=== PATIENT | female | born 1970 | race Caucasian/White ===

== ENCOUNTER 2021-06-21 12:21 | Inpatient (IN) ==
--- NOTE | 2021-06-21 13:25 | Emergency Department Note ---
Impression & Plan COPD exacerbation, Chronic chest pain, Acute and chronic respiratory failure ED Provider Note Provider: Joe Gordon MD DATE OF SERVICE: 06/21/2021 CHIEF COMPLAINT: Cough, shortness of breath HISTORY OF PRESENT ILLNESS: Patient is a 50-year-old female with a history of PE on Eliquis, CHF, bipolar, and stage IV COPD presenting here today complaint of worsening shortness of breath and cough. Patient states been dealing with this for some time and follows with her outpatient doctor and outpatient agricultural engineering technicians. Her primary doctor is located [facility] [place] your outpatient agricultural engineering technicians is located [facility]. Has been on multiple antibiotics including Augmentin, azithromycin, doxycycline most recently, and last week Levaquin without improvement of her symptoms. Has been on some prednisone increased over the last 2 days to 40 mg. States she is using her home oxygen at 3 L as normal but her oxygen levels been dropping and she is been using her nebulizer with minimal improvement. Patient states she has 1 child of the Covid vaccine at this time. Patient states compliance with her home Eliquis. Reports a little bit of chronic chest discomfort and does have a fentanyl transdermal patch for this. States the pain is beginning to hurt a little worse the tramadol she took earlier is wearing off. REVIEW OF SYSTEMS: A total of 10 review of systems was obtained and negative except as stated above in the HPI. PAST MEDICAL HISTORY: As noted above MEDICATIONS: Reviewed home medications SOCIAL HISTORY: Former longtime smoker, on home oxygen, lives at home PHYSICAL EXAM: GENERAL: alert and oriented sitting in the bed tachypneic appears uncomfortable Head: normocephalic and atraumatic EYES: No injection, discharge or icterus. NECK: Trachea midline. Supple. ENT: Mucous membranes pink and moist LUNGS: Airway patent. No retractions but tachypnea. Intermittently coughing with diffuse expiratory and mild inspiratory wheezing. HEART: Regular tachycardic rate and rhythm. No chest wall tenderness with anterior chest wall transdermal fentanyl patch in place ABDOMEN: Soft and non-tender, without guarding or rebound. SKIN: Acyanotic, warm, dry, without rashes EXTREMITIES: Without swelling, tenderness or deformity NEUROLOGICAL: No focal deficits. No aphasia. No facial droop or slurred speech. EK bpm sinus tachycardia. No PVCs. QTc 430. Some respiratory artifact but no clear ST segment elevation. QTc 430. Nonspecific T wave changes. CONTINUOUS CARDIAC MONITORING: was ordered and showed a heart rate of 120s to 140s bpm in sinus tachycardia Patient's laboratory studies and imaging reviewed. Differential includes Reactive airway disease, pneumonia, pneumothorax, COPD, CHF, infections, cardiac ischemia, pulmonary embolism, musculoskeletal, gastrointestinal, as well as other pathologies. IMPRESSION/MEDICAL DECISION MAKING: Blood work here with mild leukocytosis. Procalcitonin not elevated however lower suspicion for bacterial infection. She has been on multiple antibiotics recently without improvement. Covid negative. Troponin not elevated and no STEMI on EKG. Chronic chest pain and lower suspicion given the chronicity of her symptoms this represents ACS/RI. Given a small amount of additional fentanyl here. Tachycardia is likely related to both respiratory treatments as well as her tachypnea. Given additional Solu-Medrol here. Chest x-ray with emphysematous changes per radiology. Not anemic here today. Patient refuses and states she cannot tolerate a mask such as BiPAP or CPAP and thus transition to high flow nasal cannula to see if improves her work of breathing. Some improvement with this. Again low suspicion for PE given her anticoagulated status. Given her severe COPD and refractory nature with recent outpatient thuy tment unsure how quickly she may improve or can improve but the patient will be admitted by the hospitalist for further evaluation and care here. DIAGNOSIS: COPD exacerbation, acute on chronic respiratory failure DISPOSITION: Hospitalist will evaluate Patient was agreeable with this plan. Critical Care I have personally spent 34 minutes of critical care time in the direct management of this patient. This includes bedside care, interpretation of diagnostic studies, and testing, discussion with consultants, patient, and family members, and other required patient management activities. These 34 minutes is in excess of all separately billable procedures. Past Med/Surg History Medical History (Updated 06/21/21 @ 19:49 by Joe Gordon M.D.) Bipolar 1 disorder Chronic chest pain Chronic congestive heart failure Depression with anxiety History of breast cancer History of gastric ulcer History of pulmonary embolism Severe chronic obstructive pulmonary disease Surgical History (Updated 06/21/21 @ 17:02 by Zi Marks MD) History of adenectomy History of cholecystectomy History of hysterectomy with oophorectomy History of left mastectomy History of left shoulder replacement History of tonsillectomy Social History Smoking Status: Former smoker Tobacco Type: Cigarettes Smoking End Date: 2017; Second Hand Exposure: No; Tobacco Cessation Education Requested by Patient: No Hx Alcohol Use: No Hx Substance Use: No Preferred Language: Canadian Drafter Structural Required: No Beliefs That Will Affect Care: None Current Living Situation: Family Feels Safe at Home: Yes Assistive Devices: Denture - Upper, Denture - Lower, Nebulizer and Oxygen - Co ntinuous Allergies Allergies Allergy/AdvReac Type Severity Reaction Status Date / Time zolmitriptan Allergy Verified 06/21/21 15:03 SUMATRIPTAN SUCCINATE Allergy Mild Y Uncoded 06/21/21 15:03 (Generic Allergy) ANIMALS;DUST-ASTHMA Allergy Unknown Rash Uncoded 06/21/21 15:03 TORADOL;IMITREX-RASH Allergy Unknown Hives Uncoded 06/21/21 15:03 KETOROLAC TROMETHAMINE Allergy Y Uncoded 06/21/21 15:03 (Generic Allergy) Home Meds Home Medications Medication Instructions Recorded Confirmed albuterol sulfate 90 mcg/actuation 1 inh INHALATION Q4H 06/21/21 06/21/21 aerosol inhaler apixaban 5 mg tablet (Eliquis) 5 mg PO BID 06/21/21 06/21/21 azelastine 137 mcg (0.1 %) nasal 137 mcg INTRANASAL BID 06/21/21 06/21/21 spray aerosol budesonide 160 mcg-glycopyr 9 2 inh INHALATION BID 06/21/21 06/21/21 mcg-formot 4.8 mcg/actuation HFA inhaler (Breztri Aerosphere) clonazepam 0.5 mg tablet (Klonopin) 0.5 mg PO TID 06/21/21 06/21/21 duloxetine 20 mg capsule,delayed 40 mg PO BID 06/21/21 06/21/21 release (Cymbalta) fentanyl 12 mcg/hr transdermal 1 patch TOPICAL DAILY 06/21/21 06/21/21 patch furosemide 20 mg tablet (Lasix) 20 mg PO QPM PRN 06/21/21 06/21/21 guaifenesin 600 mg tablet, 600 mg PO Q12H 06/21/21 06/21/21 extended release 12 hr ipratropium 0.5 mg-albuterol 3 mg 3 ml INHALATION QID 06/21/21 06/21/21 (2.5 mg base)/3 mL nebulization soln lamotrigine 200 mg tablet 200 mg PO BID 06/21/21 06/21/21 metoprolol succinate 25 mg 25 mg PO DAILY 06/21/21 06/21/21 tablet,extended release 24 hr montelukast 10 mg tablet 10 mg PO DAILY 06/21/21 06/21/21 ondansetron HCl 4 mg tablet 4 mg PO Q6H PRN 06/21/21 06/21/21 (Zofran) pantoprazole 40 mg tablet,delayed 40 mg PO BID 06/21/21 06/21/21 release potassium chloride 20 mEq oral 20 meq PO DAILY 06/21/21 06/21/21 packet prednisone 20 mg tablet 20 mg PO DAILY 06/21/21 06/21/21 ropinirole 1 mg tablet 1 mg PO HS 06/21/21 06/21/21 sertraline 100 mg tablet 100 mg PO DAILY 06/21/21 06/21/21 sodium chloride 0.65 % nasal spray 1 spray INTRANASAL DAILY PRN 06/21/21 06/21/21 aerosol (Saline Nasal) spironolactone 25 mg tablet 25 mg PO DAILY 06/21/21 06/21/21 tramadol 50 mg tablet 50 mg PO Q8H PRN 06/21/21 06/21/21 Results & Data (ED) Vital Signs Vital Signs - 24 hr 06/21/21 12:34 06/21/21 12:47 06/21/21 12:51 Temperature 36.8 C Temperature Source Skin Pulse Rate 124 H Pulse Rate [Right Finger] 124 H Pulse Rhythm Regular Pulse Rhythm [Right Finger] Pulse Strength Normal Respiratory Rate 36 H 18 Respiratory Effort / Characteristics Spontaneous Accessory Muscle Use Labored Short of Breath Short of Breath Spontaneous Labored Short of Breath Tripoding Respiratory Depth Respiratory Pattern Tachypnea Blood Pressure 136/87 Blood Pressure [Right Arm] 151/91 H Blood Pressure Mean 103 Blood Pressure Mean [Right Arm] 111 Blood Pressure Position [Right Arm] Pulse Oximetry 86 L 98 Oxygen Delivery Method Nasal Cannula Oxymask Oxymask Oxygen Flow Rate 4 5 5 Fraction of Inspired Oxygen Sepsis Recent Fever Within 48 Hours No Sepsis New/Unexplained Change in Mental Status N/A Sepsis Action Taken by Nursing No Action Required Oxygen Flow Rate - Titration 06/21/21 12:57 06/21/21 14:12 06/21/21 14:49 Temperature Temperature Source Pulse Rate 124 H Pulse Rate [Right Finger] 100 H 144 H Pulse Rhythm Pulse Rhythm [Right Finger] Pulse Strength Respiratory Rate 24 24 24 Respiratory Effort / Characteristics Spontaneous Labored Respiratory Depth Respiratory Pattern Blood Pressure Blood Pressure [Right Arm] 106/73 Blood Pressure Mean Blood Pressure Mean [Right Arm] 84 Blood Pressure Position [Right Arm] Pulse Oximetry 98 97 95 Oxygen Delivery Method Oxymask Oxymask Nasal Cannula Oxygen Flow Rate 5 3 3 Fraction of Inspired Oxygen Sepsis Recent Fever Within 48 Hours Sepsis New/Unexplained Change in Mental Status Sepsis Action Taken by Nursing Oxygen Flow Rate - Titration 3 06/21/21 14:50 06/21/21 15:25 06/21/21 16:04 Temperature Temperature Source Pulse Rate Pulse Rate [Right Finger] 130 H 127 H Pulse Rhythm Pulse Rhythm [Right Finger] Regular Pulse Strength Respiratory Rate 22 20 Respiratory Effort / Characteristics Spontaneous SOB on Exertion Respiratory Depth Normal Respiratory Pattern Regular Blood Pressure Blood Pressure [Right Arm] 142/95 H Blood Pressure Mean Blood Pressure Mean [Right Arm] 110 Blood Pressure Position [Right Arm] Lying Pulse Oximetry 95 94 95 Oxygen Delivery Method Nasal Cannula High Flow Nasal Cannula High Flow Nasal Cannula Oxygen Flow Rate 3 30 30 Fraction of Inspired Oxygen 40 Sepsis Recent Fever Within 48 Hours Sepsis New/Unexplained Change in Mental Status Sepsis Action Taken by Nursing Oxygen Flow Rate - Titration Laboratory Data Result diagrams: 06/21/21 13:20 06/21/21 13:20 Lab Results 06/21/21 06/21/21 06/21/21 Range/Units 13:20 13:20 13:20 WBC 14.87 H (4.8-10.8) K/uL RBC 4.29 (4.2-5.4) M/uL Hgb 12.2 (12.0-16.0) g/dL Hct 40.3 (37-47) % MCV 93.9 (80-100) fL MCH 28.4 (25-34) pg MCHC 30.3 L (32-36) g/dL RDW Std Deviation 52.9 H (36.4-46.3) fL RDW Coeff of Negrito 15.4 H (11.5-14.5) % Plt Count 417 H (130-400) K/uL MPV 8.7 (7.4-10.4) fL Immature Gran % (Auto) 0.8 % Neut % (Auto) 91.0 % Lymph % (Auto) 4.1 % [place] % (Auto) 4.0 % Eos % (Auto) 0.0 % Baso % (Auto) 0.1 % Neut # (Auto) 13.53 H (1.4-6.5) K/uL Lymph # (Auto) 0.61 L (1.2-3.4) K/uL [place] # (Auto) 0.59 (0.11-0.59) K/uL Eos # (Auto) 0.00 (0-0.5) K/uL Baso # (Auto) 0.02 (0-0.2) K/uL Immature Gran # (Auto) 0.12 H (0.00-0.02) K/uL Sodium 138 (136-145) mmol/L Potassium 4.1 (3.5-5.1) mmol/L Chloride 101 (98-107) mmol/L Carbon Dioxide 35 H (21-32) mmol/L Anion Gap 2.0 L (3-11) BUN 6 L (7-18) mg/dl Creatinine 0.82 (0.6-1.2) mg/dl Est Cr Clr Drug Dosing 89.3 ml/min Est GFR ( Amer) 96.0 ml/min Est GFR (Non-Af Amer) 82.9 ml/min BUN/Creatinine Ratio 7.6 L (10-20) Glucose 223 H (70-99) mg/dl Calcium 9.5 (8.5-10.1) mg/dl Troponin I < 0.015 (0-0.045) ng/ml Procalcitonin 0.05 (0-0.5) ng/ml COVID-19 Eval Order SARS-CoV-2 (PCR) (Negative) 06/21/21 06/21/21 Range/Units 13:50 13:50 WBC (4.8-10.8) K/uL RBC (4.2-5.4) M/uL Hgb (12.0-16.0) g/dL Hct (37-47) % MCV (80-100) fL MCH (25-34) pg MCHC (32-36) g/dL RDW Std Deviation (36.4-46.3) fL RDW Coeff of Negrito (11.5-14.5) % Plt Count (130-400) K/uL MPV (7.4-10.4) fL Immature Gran % (Auto) % Neut % (Auto) % Lymph % (Auto) % [place] % (Auto) % Eos % (Auto) % Baso % (Auto) % Neut # (Auto) (1.4-6.5) K/uL Lymph # (Auto) (1.2-3.4) K/uL [place] # (Auto) (0.11-0.59) K/uL Eos # (Auto) (0-0.5) K/uL Baso # (Auto) (0-0.2) K/uL Immature Gran # (Auto) (0.00-0.02) K/uL Sodium (136-145) mmol/L Potassium (3.5-5.1) mmol/L Chloride (98-107) mmol/L Carbon Dioxide (21-32) mmol/L Anion Gap (3-11) BUN (7-18) mg/dl Creatinine (0.6-1.2) mg/dl Est Cr Clr Drug Dosing ml/min Est GFR ( Amer) ml/min Est GFR (Non-Af Amer) ml/min BUN/Creatinine Ratio (10-20) Glucose (70-99) mg/dl Calcium (8.5-10.1) mg/dl Troponin I (0-0.045) ng/ml Procalcitonin (0-0.5) ng/ml COVID-19 Eval Order Covid19 at [facility] SARS-CoV-2 (PCR) NEGATIVE (Negative) Administered Medications Albuterol (Albut/Ipratrop 3mg/0.5mg Neb 3 Ml Vial) 3 ml NEB Q4R TONEY Stop: 07/21/21 18:59 Last Admin: 06/21/21 19:19 Dose: 3 ml Documented by: [id number] Budesonide (Budesonide 0.5 Mg/2 Ml Vial (Pulmicort)) 0.5 mg NEB BIDR TONEY Stop: 07/21/21 18:59 Last Admin: 06/21/21 19:19 Dose: 0.5 mg Documented by: [id number] Formoterol Fumarate (Formoterol 20 Mcg/2 Ml Vial) 20 mcg NEB BID TONEY Stop: 07/21/21 20:59 Last Admin: 06/21/21 19:19 Dose: Not Given Documented by: [id number] Discontinued Medications Albuterol (Albut/Ipratrop 3mg/0.5mg Neb 3 Ml Vial) 12 ml NEB ONE ONE Stop: 06/21/21 13:35 Last Admin: 06/21/21 14:11 Dose: 12 ml Documented by: [id number] Fentanyl Citrate (Fentanyl Citrate 100 Mcg/2 Ml Vial) 25 mcg IV NOW STA Stop: 06/21/21 13:36 Last Admin: 06/21/21 15:01 Dose: 25 mcg Documented by: [id number] Methylprednisolone (Methylprednisolone 125 Mg/2 Ml Vial) 125 mg IV NOW STA Stop: 06/21/21 13:35 Last Admin: 06/21/21 13:51 Dose: 125 mg Documented by: [id number] Morphine Sulfate (Morphine Sulfate 2 Mg/Ml Carp) 2 mg IV NOW STA Stop: 06/21/21 17:00 Last Admin: 06/21/21 17:11 Dose: 2 mg Documented by: [id number] Morphine Sulfate (Morphine Sulfate 2 Mg/Ml Carp) Confirm Administered Dose 2 mg .ROUTE .STK-MED ONE Stop: 06/21/21 17:06 Last Admin: 06/21/21 17:11 Dose: Not Given Documented by: [id number] Imaging Data Radiologist's Impression: Chest X-Ray 06/21/21 12:51 XR chest 1V portable CLINICAL HISTORY: Resiratory Distress. COMPARISON STUDY: No previous studies for comparison. TECHNIQUE: 1 view of the chest FINDINGS: Single frontal view of the chest demonstrates the cardiomediastinal silhouette to be within normal limits. The lungs are clear of alveolar opacities. There is no evidence for pleural effusion. There is no evidence for vascular congestion. There is no acute osseous pathology. IMPRESSION: No acute cardiopulmonary disease. ACT 112: Negative or not required by law. Electronically signed by: Marcel Sanchez M.D. 06/21/2021 2:40 PM Discharge Plan Visit Data Chief Complaint: Respiratory Problems Stated Complaint: VERY SOB/STAGE 4 LUNG DISEASE ED Provider: Joe Gordon Discharge Problem: COPD exacerbation, Chronic chest pain, Acute and chronic respiratory failure Patient Disposition: Admitted As Inpatient Discharge Instructions Interventions: ED Discharge Assessment Last Done: 06/21/21 17:28
[2021-06-21 13:29] LABS: Basophils # (auto) 0.02 K/uL (0-0.2); Basophils % (auto) 0.1 %; Hematocrit (blood only) 40.3 % (37-47); Hemoglobin 12.2 g/dL (12.0-16.0); Immature Granulocytes # (auto) 0.12 K/uL (0.00-0.02); Immature Granulocytes % (auto) 0.8 %; Lymphocytes # (auto) 0.61 K/uL (1.2-3.4); Lymphocytes % (auto) 4.1 %; Mean Corpuscular Hemoglobin 28.4 pg (25-34); Mean Corpuscular Hgb Conc 30.3 g/dL (32-36); Mean Corpuscular Volume 93.9 fL (80-100); Mean Platelet Volume 8.7 fL (7.4-10.4); Monocytes # (auto) 0.59 K/uL (0.11-0.59); Neutrophils # (auto) 13.53 K/uL (1.4-6.5); Platelet Count 417 K/uL (130-400); RDW Coefficient of Variation 15.4 % (11.5-14.5); RDW Standard Deviation 52.9 fL (36.4-46.3); Red Blood Count 4.29 M/uL (4.2-5.4); White Blood Count 14.87 K/uL (4.8-10.8)
[2021-06-21] MEDS ORDERED: ALBUT/IPRATROP 3MG/0.5MG NEB 3 ML VIAL NEB ONE (13:34)
[2021-06-21] MEDS ORDERED: methylPREDNISolone 125 MG/2 ML VIAL IV STA (13:34)
[2021-06-21] MEDS ORDERED: fentaNYL citrate 100 MCG/2 ML VIAL IV STA (13:35)
[2021-06-21 13:49] LABS: BUN Creatinine Ratio 7.6 (10-20); Blood Urea Nitrogen 6 mg/dl (7-18); Calcium 9.5 mg/dl (8.5-10.1); Carbon Dioxide 35 mmol/L (21-32); Chloride 101 mmol/L (98-107); Creatinine Clr Calc Pharmacy 89.3 ml/min; Est GFR (Non-African American) 82.9 ml/min; Glucose 223 mg/dl (70-99); Potassium 4.1 mmol/L (3.5-5.1); Sodium 138 mmol/L (136-145)
[2021-06-21 13:54] LABS: Troponin I < 0.015 ng/ml (0-0.045)
--- NOTE | 2021-06-21 14:41 | XRay Report ---
XR chest 1V portable CLINICAL HISTORY: Resiratory Distress. COMPARISON STUDY: No previous studies for comparison. TECHNIQUE: 1 view of the chest FINDINGS: Single frontal view of the chest demonstrates the cardiomediastinal silhouette to be within normal li mits. The lungs are clear of alveolar opacities. There is no evidence for pleural effusion. There is no evidence for vascular congestion. There is no acute osseous pathology. IMPRESSION: No acute cardiopulmonary disease. ACT 112: Negative or not required by law. Electronically signed by: Marcel Sanchez M.D. 06/21/2021 2:40 PM
--- NOTE | 2021-06-21 15:48 | History & Physical Report ---
Date of Service June 21, 2021 Assessment & Plan (1) COPD exacerbation: Plan: Solu-medrol 125mg IV given in ER. Continue 40mg IV TID. Eventual wean back to her chronic steroids of prednisone 20mg PO daily Start Pulmicort and Perforomist nebulizers instead of her home inhaler Continue duonebs Q4H Continue doxycycline 100mg IV BID If not improving consider pulmonology consult (2) Acute on chronic respiratory failure with hypoxia: Plan: Unable to tolerate BiPAP Aim O2 sats > 88% (3) Chronic chest pain: Plan: Continue her usual Fentanyl patch Morphine/oxycodone for breakthrough pain (4) Depression with anxiety: Plan: Continue duloxetine and sertraline (taking both as currently in transition to sertraline) Continue Klonipin 0.5mg TID PRN (5) Bipolar 1 disorder: Plan: Continue lamotrigine 200mg PO BID (6) Chronic congestive heart failure: Plan: No acute exacerbation of this suspected. Appears euvolemic on exam. Unknown if diastolic or systolic per patient recollection Continue spironolactone 25mg PO daily (7) History of pulmonary embolism: Plan: Continue Eliquis (8) Hypertension: Plan: Continue spironolactone (9) Hiatal hernia: Plan: Continue pantoprazole 40mg PO BID Plan: VTE Prophylaxis - Eliquis Diet - clear liquid Disposition - admit to PCU given degree of respiratory failure and severity of COPD Admission and Anticipated Discharge Date Admission Date: June 21, 2021 History of Present Illness Chief Complaint: Shortness of breath Primary Care Provider: Cesar Rivera MD Krys Capellan is a 50 year old female with severe COPD and chronic hypoxic respiratory failure who presents to the ER with shortness of breath progressively getting worse over the last three weeks. She is chronically on 3- 4LPM O2 at baseline. Her pulmonary care is usually managed by [facility]. Over the last three weeks she has been getting progressively more short of breath with increasing cough despite outpatient management initially consisting of azithromycin, switched to Levaquin (finished last week day/Friday) and currently on doxycycline. She also reports her chronic 20mg PO prednisone was increased to 40mg. Given worsening symptoms she was advised to go to the hospital by her senior consumer insights consultant. In the ER O2 sats 86% on her usual 4LPM O2, she was diffusely wheezing using all accessory muscles. Unable to tolerate BIPAP therefore high flow O2 was started for some positive pressure. She feels mildly improved after steroids and duoneb 12ml given in the ER. She was referred to medicine for admission and ongoing management of COPD exacerbation. She reports previosly being on hospice to help manage her chronic chest pain but this was since revoked and she wants full level of care including CPR at this time. She has previously been on a ventilator for her COPD. Allergies Allergy/AdvReac Type Severity Reaction Status Date / Time zolmitriptan Allergy Verified 06/21/21 15:03 SUMATRIPTAN SUCCINATE Allergy Mild Y Uncoded 06/21/21 15:03 (Generic Allergy) ANIMALS;DUST-ASTHMA Allergy Unknown Rash Uncoded 06/21/21 15:03 TORADOL;IMITREX-RASH Allergy Unknown Hives Uncoded 06/21/21 15:03 KETOROLAC TROMETHAMINE Allergy Y Uncoded 06/21/21 15:03 (Generic Allergy) Home Medications Medication Instructions Recorded Confirmed Type albuterol sulfate 90 mcg/actuation 1 inh INHALATION Q4H 06/21/21 06/21/21 History aerosol inhaler apixaban 5 mg tablet (Eliquis) 5 mg PO BID 06/21/21 06/21/21 History azelastine 137 mcg (0.1 %) nasal 137 mcg INTRANASAL BID 06/21/21 06/21/21 History spray aerosol budesonide 160 mcg-glycopyr 9 2 inh INHALATION BID 06/21/21 06/21/21 History mcg-formot 4.8 mcg/actuation HFA inhaler (Breztri Aerosphere) clonazepam 0.5 mg tablet (Klonopin) 0.5 mg PO TID 06/21/21 06/21/21 History duloxetine 20 mg capsule,delayed 40 mg PO BID 06/21/21 06/21/21 History release (Cymbalta) fentanyl 12 mcg/hr transdermal 1 patch TOPICAL DAILY 06/21/21 06/21/21 History patch furosemide 20 mg tablet (Lasix) 20 mg PO QPM PRN 06/21/21 06/21/21 History guaifenesin 600 mg tablet, 600 mg PO Q12H 06/21/21 06/21/21 History extended release 12 hr ipratropium 0.5 mg-albuterol 3 mg 3 ml INHALATION QID 06/21/21 06/21/21 History (2.5 mg base)/3 mL nebulization soln lamotrigine 200 mg tablet 200 mg PO BID 06/21/21 06/21/21 History metoprolol succinate 25 mg 25 mg PO DAILY 06/21/21 06/21/21 History tablet,extended release 24 hr montelukast 10 mg tablet 10 mg PO DAILY 06/21/21 06/21/21 History ondansetron HCl 4 mg tablet 4 mg PO Q6H PRN 06/21/21 06/21/21 History (Zofran) pantoprazole 40 mg tablet,delayed 40 mg PO BID 06/21/21 06/21/21 History release potassium chloride 20 mEq oral 20 meq PO DAILY 06/21/21 06/21/21 History packet prednisone 20 mg tablet 20 mg PO DAILY 06/21/21 06/21/21 History ropinirole 1 mg tablet 1 mg PO HS 06/21/21 06/21/21 History sertraline 100 mg tablet 100 mg PO DAILY 06/21/21 06/21/21 History sodium chloride 0.65 % nasal spray 1 spray INTRANASAL DAILY PRN 06/21/21 06/21/21 History aerosol (Saline Nasal) spironolactone 25 mg tablet 25 mg PO DAILY 06/21/21 06/21/21 History tramadol 50 mg tablet 50 mg PO Q8H PRN 06/21/21 06/21/21 History Past Med/Surg History Medical History (Updated 06/22/21 @ 07:07 by Zi Marks MD) Bipolar 1 disorder Chronic chest pain Chronic congestive heart failure Depression with anxiety Hiatal hernia History of breast cancer History of gastric ulcer History of pulmonary embolism Hypertension Severe chronic obstructive pulmonary disease Surgical History (Updated 06/21/21 @ 17:02 by Zi Marks MD) History of adenectomy History of cholecystectomy History of hysterectomy with oophorectomy History of left mastectomy History of left shoulder replacement History of tonsillectomy Social History Smoking Status: Former smoker Tobacco Type: Cigarettes Smoking End Date: 2017; Second Hand Exposure: No; Tobacco Cessation Education Requested by Patient: No Hx Alcohol Use: No Hx Substance Use: No Preferred Language: Hebrew [employer] Required: No Beliefs That Will Affect Care: None Current Living Situation: Family Feels Safe at Home: Yes Assistive Devices: Oxygen - Continuous Review of Systems Review of Systems: All systems reviewed & are unremarkable except as noted in HPI & below Physical Exam Constitutional: well developed, + acute distress (respiratory) and + morbidly obese; + not well nourished Eyes: + anicteric sclerae; normal pupil size ENMT: Mouth: + dry oral mucous membranes Neck: trachea midline, no thyromegaly Respiratory: + respiratory distress, + labored breathing, + retractions, + uses accessory muscles, + cough, + prolonged expiratory phase and + audible wheezes; + not able to speak in complete sentence and no stridor Auscultation: + diminished lung sounds (very diminished posteriorly) and + wheezes (expiratory anteriorly); no crackles, no rales and no rhonchi Cardiovascular: Rate/Rhythm: regular rhythm and + tachycardic Heart Sounds: no murmur Vessels: no JVD Extremities: normal capillary refill and + pedal edema (1+ b/l pre-tibial); no calf tenderness Gastrointestinal (Abdomen): normal bowel sounds, soft, nontender, no hepatosplenomegaly Musculoskeletal: no cyanosis or clubbing, extremities motor strength 5/5 Skin: no rashes, warm and dry Neurologic: moves all extremities and awake; no focal motor deficits (no lateralizing deficit) and not confused Cranial Nerves: normal facial strength Psychiatric: A+Ox3, euthymic affect Results & Data Results & Data ([facility]) Vital Signs (Past 12 Hours) Vital Signs Temp Pulse Pulse Resp BP BP Pulse Ox 06/21/21 15:25 130 H 22 94 06/21/21 14:50 95 06/21/21 14:49 144 H 24 106/73 95 06/21/21 14:12 100 H 24 97 06/21/21 12:57 124 H 24 98 06/21/21 12:47 124 H 18 151/91 H 98 06/21/21 12:34 36.8 C 124 H 36 H 136/87 86 L Laboratory Results Abnormal lab results 06/21/21 06/21/21 Range/Units 13:20 13:20 WBC 14.87 H (4.8-10.8) K/uL MCHC 30.3 L (32-36) g/dL RDW Std Deviation 52.9 H (36.4-46.3) fL RDW Coeff of Negrito 15.4 H (11.5-14.5) % Plt Count 417 H (130-400) K/uL Neut # (Auto) 13.53 H (1.4-6.5) K/uL Lymph # (Auto) 0.61 L (1.2-3.4) K/uL Immature Gran # (Auto) 0.12 H (0.00-0.02) K/uL Carbon Dioxide 35 H (21-32) mmol/L Anion Gap 2.0 L (3-11) BUN 6 L (7-18) mg/dl BUN/Creatinine Ratio 7.6 L (10-20) Glucose 223 H (70-99) mg/dl Diagnostic Findings XR chest 1V portable CLINICAL HISTORY: Resiratory Distress. COMPARISON STUDY: No previous studies for comparison. TECHNIQUE: 1 view of the chest FINDINGS: Single frontal view of the chest demonstrates the cardiomediastinal silhouette to be within normal limits. The lungs are clear of alveolar opacities. There is no evidence for pleural effusion. There is no evidence for vascular congestion. There is no acute osseous pathology. IMPRESSION: No acute cardiopulmonary disease. Medications Administered ER Medications Given: Duoneb 12ml NEB Methylprednisolone 125mg IV Fentanyl 25 mcg IV ECG Indication: SOB/dyspnea Rate (beats per minute): 125 Rhythm: sinus tachycardia Findings: no acute ischemic change Comparison ECG Date: from (February 17, 2002) Change: no significant change (increased ventricular rate only) Code Status & VTE Plan Code Status Full VTE Prophylaxis Plan VTE Prophylaxis will be ordered: Yes PG Care Time/CCT Total # of Minutes Spent Total Time Spent with Patient: Total time spent is greater than 50% in coordination of care (as documented) at patient's floor/unit and/or counseling patient: Coding Level of Care Code 36419 Initial Inpt Care Lvl 3 Diagnoses COPD exacerbation J44.1 Chronic chest pain R07.9; G89.29 Depression with anxiety F41.8 Bipolar 1 disorder F31.9 Chronic congestive heart failure I50.9 History of pulmonary embolism Z86.711 Acute on chronic respiratory failure with hypoxia J96.21 Hypertension I10 Hiatal hernia K44.9
[2021-06-21] MEDS ORDERED: MoRPHine SULFATE 2 MG/ML CARP IV STA (16:59)
[2021-06-21] MEDS ORDERED: MoRPHine SULFATE 2 MG/ML CARP ONE (17:05)
[2021-06-21] MEDS ORDERED: ACETAMINOPHEN 325 MG TAB PO PRN (18:12)
[2021-06-21] MEDS ORDERED: traMADol HCL 50 MG TABLET PO PRN (18:12)
[2021-06-21] MEDS ORDERED: SODIUM CHLORIDE 0.65% NA SOLN 45 ML (OCEAN) PRN (18:12)
[2021-06-21] MEDS ORDERED: PNEUMOCOCCAL POLYSACCHARIDES 25 MCG/0.5 ML VIAL/SYR IM ONE (18:43)
[2021-06-21] MEDS: FORMOTEROL 20 MCG/2 ML VIAL NEB SCH (19:19)
[2021-06-21] MEDS: BUDESONIDE 0.5 MG/2 ML VIAL (PULMICORT) NEB SCH (19:19)
[2021-06-21] MEDS: ALBUT/IPRATROP 3MG/0.5MG NEB 3 ML VIAL NEB SCH ×2 (19:19→23:28)
[2021-06-21] MEDS: MoRPHine SULFATE 2 MG/ML CARP IV PRN ×2 (20:06→23:44)
[2021-06-21] MEDS: AZELASTINE HCL 0.1% NASAL 200 SPRAYS/27,400 MCG BTL NAE SCH (20:54)
[2021-06-21] MEDS: rOPINIRole HCL 1 MG TABLET PO SCH (20:54)
[2021-06-21] MEDS: APIXABAN 5 MG TABLET PO SCH (20:54)
[2021-06-21] MEDS: DOXYCYCLINE HYCLATE 100 MG in DEXTROSE 5% 100 ML IV SCH (20:54)
[2021-06-21] MEDS: PANTOprazole 40 MG TAB PO SCH (20:54)
[2021-06-21] MEDS: lamoTRIgine 100 MG TAB PO SCH (20:54)
[2021-06-21] MEDS: methylPREDNISolone 40 MG in SYRINGE 0 ML IV SCH (20:54)
[2021-06-21] MEDS: guaiFENesin 600 MG TABCR PO SCH (20:58)
[2021-06-21] MEDS: DULoxetine HCL 20 MG CAP PO SCH (20:59)
[2021-06-21] MEDS ORDERED: clonazePAM 0.5 MG TAB PO SCH (21:00)
[2021-06-22] MEDS: CHECK fentaNYL PATCH PLACEMENT SCH ×3 (00:29→16:45)
[2021-06-22] MEDS: ALBUT/IPRATROP 3MG/0.5MG NEB 3 ML VIAL NEB SCH ×6 (03:36→23:05)
[2021-06-22] MEDS: MoRPHine SULFATE 2 MG/ML CARP IV PRN ×6 (05:17→22:13)
[2021-06-22] MEDS: ONDANSETRON INJ 2 MG/ML 2 ML VIAL IV PRN ×2 (05:17→19:32)
--- NOTE | 2021-06-22 06:14 | Electrocardiogram Report ---
Test Reason : Blood Pressure : / mmHG Vent. Rate : 125 BPM Atrial Rate : 125 BPM P-R Int : 152 ms QRS Dur : 082 ms QT Int : 298 ms P-R-T Axes : 094 060 076 degrees QTc Int : 430 ms Poor data quality, interpretation may be adversely affected Sinus tachycardia When compared with ECG of 17-FEB-2002 13:28, Vent. rate has increased BY 52 BPM Confirmed by Chris Ochoa ([id number]) on 06/22/2021 6:14:25 AM Referred By: NO PCP Confirmed By:Chris Ochoa
[2021-06-22] MEDS: BUDESONIDE 0.5 MG/2 ML VIAL (PULMICORT) NEB SCH ×2 (07:18→20:15)
[2021-06-22] MEDS: FORMOTEROL 20 MCG/2 ML VIAL NEB SCH ×2 (07:19→20:15)
[2021-06-22] MEDS: DULoxetine HCL 20 MG CAP PO SCH ×2 (08:28→20:53)
[2021-06-22] MEDS: methylPREDNISolone 40 MG in SYRINGE 0 ML IV SCH ×3 (08:28→20:53)
[2021-06-22] MEDS: MONTELUKAST SODIUM 10 MG TABLET PO SCH (08:29)
[2021-06-22] MEDS: SERTRALINE HCL 100 MG TABLET PO SCH (08:29)
[2021-06-22] MEDS: SPIRONOLACTONE 25 MG TAB PO SCH (08:29)
[2021-06-22] MEDS: POTASSIUM CHLORIDE PWD 20 MEQ PACK PO SCH (08:29)
[2021-06-22] MEDS: PANTOprazole 40 MG TAB PO SCH ×2 (08:29→20:53)
[2021-06-22] MEDS: lamoTRIgine 100 MG TAB PO SCH ×2 (08:29→20:53)
[2021-06-22] MEDS: METOPROLOL SUCC 25MG EXT REL TAB PO SCH (08:29)
[2021-06-22] MEDS: AZELASTINE HCL 0.1% NASAL 200 SPRAYS/27,400 MCG BTL NAE SCH ×2 (08:30→20:53)
[2021-06-22] MEDS: guaiFENesin 600 MG TABCR PO SCH ×2 (08:30→19:32)
[2021-06-22] MEDS: APIXABAN 5 MG TABLET PO SCH ×2 (08:30→20:53)
[2021-06-22] MEDS: DOXYCYCLINE HYCLATE 100 MG in DEXTROSE 5% 100 ML IV SCH ×2 (08:38→20:52)
[2021-06-22] MEDS: clonazePAM 0.5 MG TAB PO PRN ×2 (11:25→22:13)
[2021-06-22] MEDS: fentaNYL 12 MCG/HR TDSY TD SCH (12:18)
--- NOTE | 2021-06-22 14:07 | Hospitalist Progress Note ---
Date of Service June 22, 2021 Assessment & Plan (1) COPD exacerbation: Plan: Patient presents with SOB and Wheeze Received Solu-medrol 125mg IV given in ER. Continue 40mg IV TID. Still some SOB and wheeze this morning Continue duonebs Q4H and steroids Continue doxycycline 100mg IV BID (2) Acute on chronic respiratory failure with hypoxia: Plan: Still on supplemental oxygen Wean as tolerated (3) Chronic chest pain: Plan: Continue her usual Fentanyl patch Morphine/oxycodone for breakthrough pain (4) Depression with anxiety: Plan: Continue duloxetine and sertraline (taking both as currently in transition to sertraline) Continue Klonipin 0.5mg TID PRN (5) Bipolar 1 disorder: Plan: Continue lamotrigine 200mg PO BID (6) Chronic congestive heart failure: Plan: Appears compensated Continue home meds (7) History of pulmonary embolism: Plan: Continue Eliquis (8) Hypertension: Plan: Continue spironolactone (9) Hiatal hernia: Plan: Continue pantoprazole 40mg PO BID Plan: VTE Prophylaxis - Eliquis Diet - clear liquid Disposition - admit to PCU given degree of respiratory failure and severity of COPD Admission and Anticipated Discharge Date Admission Date: June 21, 2021 Subjective Patient seen and examined this morning, still has some SOB and wheeze, but some improvement compared to admission Review of Systems Review of Systems: All systems reviewed are negative, apart from the ones contained in the history. Physical Exam Physical Exam: The patient is awake, alert and oriented 3, well developed and well nourished, normocephalic and atraumatic, lying in bed and in no acute distress. HEENT--PERRL, EOMI, mucous membranes and oropharynx mildly dry Neck--supple. No JVD. No bruits. Thyroid normal, trachea midline, no ad enopathy. Heart--normal S1 and S2. No murmurs, rubs or gallops. Lungs--Reduced air entry on auscultation, bibasilar wheeze Abdomen--normal bowel sounds and soft. Mild epigastric and left sided abdominal pain Extremities--no cyanosis or clubbing. No edema. Dermatologic--normal skin turgor, normal color, no abnormal lymph nodes, no rash. Neurologic--cranial nerves II through XII grossly intact. Rheumatologic--normal range of motion. Psychiatric--normal affect. Results & Data Results & Data ([facility]) Vital Signs (Past 12 Hours) Vital Signs Temp Pulse Pulse Resp BP Pulse Ox 06/22/21 12:23 98.2 F 88 20 118/60 99 06/22/21 11:10 99 H 18 95 06/22/21 08:00 105 H 06/22/21 07:51 98.4 F 96 H 18 122/64 95 06/22/21 07:19 106 H 18 94 06/22/21 03:48 97.5 F L 115 H 23 134/71 96 06/22/21 03:37 114 H 25 H 96 06/22/21 03:34 115 H 25 H 96 Laboratory Results Laboratory Results - last 24 hr 06/21/21 06/21/21 06/21/21 13:20 13:50 13:50 Procalcitonin 0.05 COVID-19 Eval Order Covid19 at [facility] SARS-CoV-2 (PCR) NEGATIVE PG Care Time/CCT Total # of Minutes Spent Total Time Spent with Patient: Total time spent is greater than 50% in coordination of care (as documented) at patient's floor/unit and/or counseling patient: Coding Level of Care Code 55996 Subseq Hosp Care Lvl 2 Diagnoses COPD exacerbation J44.1 Acute on chronic respiratory failure with hypoxia J96.21 Chronic chest pain R07.9; G89.29 Depression with anxiety F41.8 Bipolar 1 disorder F31.9 Chronic congestive heart failure I50.9 History of pulmonary embolism Z86.711 Hypertension I10 Hiatal hernia K44.9
[2021-06-22] MEDS: rOPINIRole HCL 1 MG TABLET PO SCH (20:53)
[2021-06-23] MEDS: MoRPHine SULFATE 2 MG/ML CARP IV PRN ×6 (01:55→20:20)
[2021-06-23] MEDS: CHECK fentaNYL PATCH PLACEMENT SCH ×4 (01:56→23:50)
[2021-06-23] MEDS: ALBUT/IPRATROP 3MG/0.5MG NEB 3 ML VIAL NEB SCH ×6 (02:16→23:10)
[2021-06-23] MEDS: FORMOTEROL 20 MCG/2 ML VIAL NEB SCH ×2 (07:32→19:48)
[2021-06-23] MEDS: BUDESONIDE 0.5 MG/2 ML VIAL (PULMICORT) NEB SCH ×2 (07:32→19:47)
[2021-06-23 07:59] LABS: Basophils # (auto) 0.02 K/uL (0-0.2); Basophils % (auto) 0.1 %; Hematocrit (blood only) 41.3 % (37-47); Hemoglobin 12.3 g/dL (12.0-16.0); Immature Granulocytes % (auto) 0.5 %; Lymphocytes # (auto) 1.88 K/uL (1.2-3.4); Lymphocytes % (auto) 9.8 %; Mean Corpuscular Hgb Conc 29.8 g/dL (32-36); Mean Corpuscular Volume 94.1 fL (80-100); Monocytes # (auto) 1.59 K/uL (0.11-0.59); Monocytes % (auto) 8.3 %; Neutrophils # (auto) 15.57 K/uL (1.4-6.5); Neutrophils % (auto) 81.3 %; Platelet Count 422 K/uL (130-400); RDW Coefficient of Variation 14.7 % (11.5-14.5); RDW Standard Deviation 50.4 fL (36.4-46.3); Red Blood Count 4.39 M/uL (4.2-5.4); White Blood Count 19.16 K/uL (4.8-10.8)
[2021-06-23] MEDS: clonazePAM 0.5 MG TAB PO PRN ×2 (08:05→20:20)
[2021-06-23] MEDS: methylPREDNISolone 40 MG in SYRINGE 0 ML IV SCH ×3 (08:06→20:08)
[2021-06-23] MEDS: SPIRONOLACTONE 25 MG TAB PO SCH (08:06)
[2021-06-23] MEDS: AZELASTINE HCL 0.1% NASAL 200 SPRAYS/27,400 MCG BTL NAE SCH ×2 (08:06→20:08)
[2021-06-23] MEDS: SERTRALINE HCL 100 MG TABLET PO SCH (08:06)
[2021-06-23] MEDS: METOPROLOL SUCC 25MG EXT REL TAB PO SCH (08:06)
[2021-06-23] MEDS: SIMETHICONE 80 MG CHEW PO PRN (08:06)
[2021-06-23] MEDS: guaiFENesin 600 MG TABCR PO SCH ×2 (08:07→19:23)
[2021-06-23] MEDS: PANTOprazole 40 MG TAB PO SCH ×2 (08:07→20:08)
[2021-06-23] MEDS: lamoTRIgine 100 MG TAB PO SCH ×2 (08:07→20:08)
[2021-06-23] MEDS: APIXABAN 5 MG TABLET PO SCH ×2 (08:07→20:08)
[2021-06-23] MEDS: MONTELUKAST SODIUM 10 MG TABLET PO SCH (08:07)
[2021-06-23] MEDS: DULoxetine HCL 20 MG CAP PO SCH ×2 (08:09→20:08)
[2021-06-23] MEDS: POTASSIUM CHLORIDE PWD 20 MEQ PACK PO SCH (08:09)
[2021-06-23] MEDS: DOXYCYCLINE HYCLATE 100 MG in DEXTROSE 5% 100 ML IV SCH ×2 (08:13→20:07)
[2021-06-23 08:34] LABS: BUN Creatinine Ratio 17.4 (10-20); Calcium 9.5 mg/dl (8.5-10.1); Creatinine Clr Calc Pharmacy 95.2 ml/min; Potassium 3.7 mmol/L (3.5-5.1)
--- NOTE | 2021-06-23 12:36 | Hospitalist Progress Note ---
Date of Service June 23, 2021 Assessment & Plan (1) COPD exacerbation: Plan: Patient presents with SOB and Wheeze Continue 40mg IV TID. Still some SOB and wheeze this morning Continue duonebs Q4H and steroids Continue doxycycline 100mg IV BID (2) Acute on chronic respiratory failure with hypoxia: Plan: Still on supplemental oxygen Wean as tolerated (3) Chronic chest pain: Plan: Continue her usual Fentanyl patch Morphine/oxycodone for breakthrough pain (4) Depression with anxiety: Plan: Continue duloxetine and sertraline (taking both as currently in transition to sertraline) Continue Klonipin 0.5mg TID PRN (5) Bipolar 1 disorder: Plan: Continue lamotrigine 200mg PO BID (6) Chronic congestive heart failure: Plan: Appears compensated Continue home meds (7) History of pulmonary embolism: Plan: Continue Eliquis (8) Hypertension: Plan: Continue spironolactone (9) Hiatal hernia: Plan: Continue pantoprazole 40mg PO BID (10) Thrush, oral: Plan: po fluconazole 100mg daily Plan: VTE Prophylaxis - Eliquis Diet - clear liquid Disposition - admit to PCU given degree of respiratory failure and severity of COPD Admission and Anticipated Discharge Date Admission Date: June 21, 2021 Subjective Patient seen and examined this morning, still has some SOB and wheeze, but some improvement compared to admission, oral thrush Review of Systems Review of Systems: All systems reviewed are negative, apart from the ones contained in the history. Physical Exam Physical Exam: The patient is awake, alert and oriented 3, well developed and well nourished, normocephalic and atraumatic, lying in bed and in no acute distress. HEENT--PERRL, EOMI, mucous membranes and oropharynx mildly dry, oral thrush Neck--supple. No JVD. No bruits. Thyroid normal, trachea midline, no adenopathy. Heart--normal S1 and S2. No murmurs, rubs or gallops. Lungs--Reduced air entry on auscultation, bibasilar wheeze Abdomen--normal bowel sounds and soft. Mild epigastric and left sided abdominal pain Extremities--no cyanosis or clubbing. No edema. Dermatologic--normal skin turgor, normal color, no abnormal lymph nodes, no rash. Neurologic--cranial nerves II through XII grossly intact. Rheumatologic--normal range of motion. Psychiatric--normal affect. Results & Data Results & Data ([facility]) Vital Signs (Past 12 Hours) Vital Signs Temp Pulse Resp BP Pulse Ox 06/23/21 11:16 106 H 20 95 06/23/21 08:07 98.1 F 113 H 18 139/83 97 06/23/21 07:32 103 H 20 94 06/23/21 03:56 97.9 F 112 H 26 H 117/76 91 06/23/21 02:17 82 20 95 Laboratory Results Laboratory Results - last 24 hr 06/23/21 06/23/21 07:05 07:05 WBC 19.16 H RBC 4.39 Hgb 12.3 Hct 41.3 MCV 94.1 MCH 28.0 MCHC 29.8 L RDW Std Deviation 50.4 H RDW Coeff of Negrito 14.7 H Plt Count 422 H MPV 9.0 Immature Gran % (Auto) 0.5 Neut % (Auto) 81.3 Lymph % (Auto) 9.8 [place] % (Auto) 8.3 Eos % (Auto) 0.0 Baso % (Auto) 0.1 Neut # (Auto) 15.57 H Lymph # (Auto) 1.88 [place] # (Auto) 1.59 H Eos # (Auto) 0.00 Baso # (Auto) 0.02 Immature Gran # (Auto) 0.10 H Sodium 139 Potassium 3.7 Chloride 97 L Carbon Dioxide 35 H Anion Gap 7.0 BUN 14 D Creatinine 0.78 Est Cr Clr Drug Dosing 95.2 Est GFR ( Amer) 102.0 Est GFR (Non-Af Amer) 88.0 BUN/Creatinine Ratio 17.4 Glucose 191 H Calcium 9.5 PG Care Time/CCT Total # of Minutes Spent Total Time Spent with Patient: Total time spent is greater than 50% in coordination of care (as documented) at patient's floor/unit and/or counseling patient: Coding Level of Care Code 83544 Subseq Hosp Care Lvl 2 Diagnoses COPD exacerbation J44.1 Acute on chronic respiratory failure with hypoxia J96.21 Chronic chest pain R07.9; G89.29 Depression with anxiety F41.8 Bipolar 1 disorder F31.9 Chronic congestive heart failure I50.9 History of pulmonary embolism Z86.711 Hypertension I10 Hiatal hernia K44.9 Thrush, oral B37.0
[2021-06-23] MEDS: rOPINIRole HCL 1 MG TABLET PO SCH (20:08)
[2021-06-23] MEDS: ONDANSETRON INJ 2 MG/ML 2 ML VIAL IV PRN (20:20)
[2021-06-24] MEDS: MoRPHine SULFATE 2 MG/ML CARP IV PRN ×8 (00:20→22:42)
[2021-06-24] MEDS ORDERED: NYSTATIN SUSP 500,000 U/5 ML UDC PO STA (01:56)
[2021-06-24] MEDS: ALBUT/IPRATROP 3MG/0.5MG NEB 3 ML VIAL NEB SCH ×6 (02:18→22:40)
[2021-06-24] MEDS: FORMOTEROL 20 MCG/2 ML VIAL NEB SCH ×2 (07:32→19:26)
[2021-06-24] MEDS: BUDESONIDE 0.5 MG/2 ML VIAL (PULMICORT) NEB SCH ×2 (07:32→19:25)
[2021-06-24] MEDS: ONDANSETRON INJ 2 MG/ML 2 ML VIAL IV PRN ×2 (08:36→22:42)
[2021-06-24] MEDS: methylPREDNISolone 40 MG in SYRINGE 0 ML IV SCH ×3 (08:36→20:34)
[2021-06-24] MEDS: clonazePAM 0.5 MG TAB PO PRN ×2 (08:36→20:30)
[2021-06-24] MEDS: MONTELUKAST SODIUM 10 MG TABLET PO SCH (08:37)
[2021-06-24] MEDS: lamoTRIgine 100 MG TAB PO SCH ×2 (08:37→20:35)
[2021-06-24] MEDS: PANTOprazole 40 MG TAB PO SCH ×2 (08:37→20:35)
[2021-06-24] MEDS: SERTRALINE HCL 100 MG TABLET PO SCH (08:37)
[2021-06-24] MEDS: FLUCONAZOLE 100 MG TAB PO SCH (08:37)
[2021-06-24] MEDS: guaiFENesin 600 MG TABCR PO SCH ×2 (08:37→19:06)
[2021-06-24] MEDS: DULoxetine HCL 20 MG CAP PO SCH ×2 (08:37→20:35)
[2021-06-24] MEDS: APIXABAN 5 MG TABLET PO SCH ×2 (08:37→20:34)
[2021-06-24] MEDS: SPIRONOLACTONE 25 MG TAB PO SCH (08:37)
[2021-06-24] MEDS: METOPROLOL SUCC 25MG EXT REL TAB PO SCH (08:37)
[2021-06-24] MEDS: DOXYCYCLINE HYCLATE 100 MG in DEXTROSE 5% 100 ML IV SCH ×2 (08:38→20:30)
[2021-06-24] MEDS: AZELASTINE HCL 0.1% NASAL 200 SPRAYS/27,400 MCG BTL NAE SCH ×2 (08:38→20:36)
[2021-06-24] MEDS: CHECK fentaNYL PATCH PLACEMENT SCH ×2 (08:39→15:09)
[2021-06-24] MEDS: POTASSIUM CHLORIDE PWD 20 MEQ PACK PO SCH (08:45)
--- NOTE | 2021-06-24 11:58 | Hospitalist Progress Note ---
Date of Service June 24, 2021 Assessment & Plan (1) COPD exacerbation: Plan: Patient presents with SOB and Wheeze Much improved this morning Still some wheeze this morning Continue duonebs Q4H and steroids, 40mg Continue doxycycline 100mg IV BID (2) Acute on chronic respiratory failure with hypoxia: Plan: Still on supplemental oxygen Wean as tolerated (3) Chronic chest pain: Plan: Continue her usual Fentanyl patch Morphine/oxycodone for breakthrough pain (4) Depression with anxiety: Plan: Continue duloxetine and sertraline (taking both as currently in transition to sertraline) Continue Klonipin 0.5mg TID PRN (5) Bipolar 1 disorder: Plan: Continue lamotrigine 200mg PO BID (6) Chronic congestive heart failure: Plan: Appears compensated Continue home meds (7) History of pulmonary embolism: Plan: Continue Eliquis (8) Hypertension: Plan: Continue spironolactone (9) Hiatal hernia: Plan: Continue pantoprazole 40mg PO BID (10) Thrush, oral: Plan: po fluconazole 100mg daily Plan: VTE Prophylaxis - Eliquis Diet - clear liquid Disposition - admit to PCU given degree of respiratory failure and severity of COPD Admission and Anticipated Discharge Date Admission Date: June 21, 2021 Likely discharge in the next 24-48 hrs Subjective Patient seen and examined this morning, SOB is much improved, although still has some wheeze Review of Systems Review of Systems: All systems reviewed are negative, apart from the ones contained in the history. Physical Exam Physical Exam: The patient is awake, alert and oriented 3, well developed and well nourished, normocephalic and atraumatic, lying in bed and in no acute distress. HEENT--PERRL, EOMI, mucous membranes and oropharynx mildly dry, oral thrush Neck--supple. No JVD. No bruits. Thyroid normal, trachea midline, no adenopathy. Heart--normal S1 and S2. No murmurs, rubs or gallops. Lungs--Reduced air entry on auscultation, bibasilar wheeze Abdomen--normal bowel sounds and soft. Mild epigastric and left sided abdominal pain Extremities--no cyanosis or clubbing. No edema. Dermatologic--normal skin turgor, normal color, no abnormal lymph nodes, no rash. Neurologic--cranial nerves II through XII grossly intact. Rheumatologic--normal range of motion. Psychiatric--normal affect. Results & Data Results & Data ([facility]) Vital Signs (Past 12 Hours) Vital Signs Temp Pulse Pulse Resp BP Pulse Ox 06/24/21 08:00 113 H 06/24/21 07:40 98.1 F 106 H 18 114/69 96 06/24/21 07:32 107 H 20 96 06/24/21 03:34 98.1 F 110 H 18 134/85 97 06/24/21 02:19 80 20 95 PG Care Time/CCT Total # of Minutes Spent Total Time Spent with Patient: Total time spent is greater than 50% in coordination of care (as documented) at patient's floor/unit and/or counseling patient: Coding Level of Care Code 32044 Subseq Hosp Care Lvl 2 Diagnoses COPD exacerbation J44.1 Acute on chronic respiratory failure with hypoxia J96.21 Chronic chest pain R07.9; G89.29 Depression with anxiety F41.8 Bipolar 1 disorder F31.9 Chronic congestive heart failure I50.9 History of pulmonary embolism Z86.711 Hypertension I10 Hiatal hernia K44.9 Thrush, oral B37.0
[2021-06-24] MEDS: SIMETHICONE 80 MG CHEW PO PRN ×2 (14:20→19:06)
[2021-06-24] MEDS: rOPINIRole HCL 1 MG TABLET PO SCH (20:35)
[2021-06-25] MEDS: CHECK fentaNYL PATCH PLACEMENT SCH ×3 (00:24→16:49)
[2021-06-25] MEDS: MoRPHine SULFATE 2 MG/ML CARP IV PRN ×8 (01:27→22:18)
[2021-06-25] MEDS: ALBUT/IPRATROP 3MG/0.5MG NEB 3 ML VIAL NEB SCH ×6 (02:16→22:52)
[2021-06-25] MEDS: ONDANSETRON INJ 2 MG/ML 2 ML VIAL IV PRN (06:26)
[2021-06-25] MEDS: FORMOTEROL 20 MCG/2 ML VIAL NEB SCH ×2 (07:37→20:26)
[2021-06-25] MEDS: BUDESONIDE 0.5 MG/2 ML VIAL (PULMICORT) NEB SCH ×2 (07:37→20:26)
[2021-06-25] MEDS: DULoxetine HCL 20 MG CAP PO SCH ×2 (07:54→20:21)
[2021-06-25] MEDS: methylPREDNISolone 40 MG in SYRINGE 0 ML IV SCH ×3 (07:54→20:21)
[2021-06-25] MEDS: MONTELUKAST SODIUM 10 MG TABLET PO SCH (07:55)
[2021-06-25] MEDS: SPIRONOLACTONE 25 MG TAB PO SCH (07:55)
[2021-06-25] MEDS: METOPROLOL SUCC 25MG EXT REL TAB PO SCH (07:55)
[2021-06-25] MEDS: lamoTRIgine 100 MG TAB PO SCH ×2 (07:55→20:21)
[2021-06-25] MEDS: PANTOprazole 40 MG TAB PO SCH ×2 (07:55→20:21)
[2021-06-25] MEDS: guaiFENesin 600 MG TABCR PO SCH ×2 (07:55→20:21)
[2021-06-25] MEDS: AZELASTINE HCL 0.1% NASAL 200 SPRAYS/27,400 MCG BTL NAE SCH ×2 (07:56→20:22)
[2021-06-25] MEDS: POTASSIUM CHLORIDE PWD 20 MEQ PACK PO SCH ×2 (07:56→08:01)
[2021-06-25] MEDS: FLUCONAZOLE 100 MG TAB PO SCH (07:56)
[2021-06-25] MEDS: SERTRALINE HCL 100 MG TABLET PO SCH (07:56)
[2021-06-25] MEDS: POLYETHYLENE (MIRALAX) 17 GM PACK PO PRN (07:59)
[2021-06-25] MEDS: DOXYCYCLINE HYCLATE 100 MG in DEXTROSE 5% 100 ML IV SCH ×2 (08:13→20:23)
[2021-06-25] MEDS: APIXABAN 5 MG TABLET PO SCH ×2 (08:35→20:21)
[2021-06-25] MEDS: fentaNYL 12 MCG/HR TDSY TD SCH (13:18)
--- NOTE | 2021-06-25 14:53 | Hospitalist Progress Note ---
Date of Service June 25, 2021 Assessment & Plan (1) COPD exacerbation: Plan: Patient presents with SOB and Wheeze. With end-stage COPD Request records from outpatient electric range servicer, Dr. Khai Munguia Improving, still producing large amounts of dark yellow sputum. Afebrile On 3 L nasal cannula at rest but still quite dyspneic on exertion with worsening hypoxia with minimal exertion On 3 L nasal cannula continuously at home at baseline Continue duonebs Q4H -Continue Solu-Medrol 40 mg IV every 8 hours and eventually taper back to home dose of prednisone 20 mg daily Continue doxycycline 100mg IV BID -Check sputum culture -Continue pain control with fentanyl patch, IV morphine increased to 3 mg IV every 2 hours as needed and consult palliative medicine for improved symptom management for her end-stage condition-she would like to follow-up with palliative medicine as an outpatient as well -May need a two-step walk test prior to discharge to identify increasing oxygen needs (2) Acute on chronic respiratory failure with hypoxia: Plan: Still on supplemental oxygen Wean as tolerated as above (3) Chronic chest pain: Plan: As above, secondary to COPD with barrel chest and likely some due to rapid weight gain from being on high-dose steroids for the last 6 months or so Continue fentanyl patch and consider increasing dose Increase morphine to 3 mg IV every 2 hours as needed severe pain She reports oxycodone does not work for her Tramadol only helps her at baseline as an outpatient when not in acute exacerbation Consult palliative medicine for pain management of this end-stage condition as above (4) Depression with anxiety: Plan: Continue duloxetine and sertraline (taking both as currently in transition to sertraline) Continue Klonipin 0.5mg TID PRN (5) Bipolar 1 disorder: Plan: Continue lamotrigine 200mg PO BID (6) Chronic congestive heart failure: Plan: Appears compensated, unclear if ejection fraction reduced or preserved, but suspect preserved Continue home spironolactone, metoprolol (7) History of pulmonary embolism: Plan: Continue Eliquis (8) Hypertension: Plan: Blood pressures are controlled Continue spironolactone, metoprolol (9) Hiatal hernia: Plan: Continue pantoprazole 40mg PO BID (10) Thrush, oral: Plan: po fluconazole 100mg daily Thrush is now completely resolved Plan: VTE Prophylaxis - Eliquis Disposition -continued stay on PCU, but can likely downgrade to medical floor tomorrow if remains stable, hopeful for discharge to home in the next 1 to 2 days Admission and Anticipated Discharge Date Admission Date: June 21, 2021 Subjective Patient reports still coughing up lots of dark yellow sputum. She has a lot of pain in her lower ribs and upper abdomen on both sides which is acute on chronic. She reports she was recently on hospice for pain control with her end- stage COPD but after her pain was under better control on fentanyl patch and as needed tramadol, she was taken off hospice. She has been requiring quite a bit of morphine here but reports that she only requires morphine when she has acute exacerbations of her COPD such as now. She does not feel ready to go home. She still is very dyspneic with minimal exertion. Typically at home she can walk 10 feet or so without dropping her pulse ox while remaining on her usual 3 L nasal cannula. Telemetry with sinus tachycardia in the low 100s. She is interested in seeing palliative medicine for symptom and pain management and following with them as an outpatient as well. Review of Systems Review of Systems: All systems reviewed & are unremarkable except as noted in HPI & below Physical Exam Constitutional: WD/WN, vitals as above + obese (Cushingoid in appearance) Eyes: + anicteric sclerae ENMT: external ear and nose normal, oropharynx normal Neck: trachea midline, no thyromegaly Respiratory: + tachypneic (With fluent sentences) Auscultation: + diminished lung sounds (Throughout) and + wheezes Cardiovascular: RRR, no murmur, no edema Chest (Breasts): Chest: normal inspection of chest Gastrointestinal (Abdomen): normal bowel sounds, soft, nontender, no hepatosplenomegaly Musculoskeletal: Extremities: extremities normal to inspection; no cyanosis an d no clubbing Skin: no rashes, warm and dry Trauma: + evidence of skin trauma (Large old scars on legs bilaterally from previous wounds) Neurologic: moves all extremities and awake; no focal motor deficits Psychiatric: A+Ox3, euthymic affect Lymphatic: no lymphedema Results & Data Results & Data ([facility]) Vital Signs (Past 12 Hours) Vital Signs Temp Pulse Pulse Resp BP Pulse Ox 06/25/21 11:19 36.8 C 120 H 20 126/75 95 06/25/21 10:58 106 H 06/25/21 07:37 111 H 18 94 06/25/21 07:30 37.0 C 108 H 20 111/69 94 06/25/21 03:48 36.7 C 107 H 18 148/82 H 94 PG Care Time/CCT Total # of Minutes Spent Total Time Spent with Patient: Total time spent is greater than 50% in coordination of care (as documented) at patient's floor/unit and/or counseling patient: Coding Level of Care Code 48958 Subseq Hosp Care Lvl 3 Diagnoses COPD exacerbation J44.1 Acute on chronic respiratory failure with hypoxia J96.21 Chronic chest pain R07.9; G89.29 Depression with anxiety F41.8 Bipolar 1 disorder F31.9 Chronic congestive heart failure I50.9 History of pulmonary embolism Z86.711 Hypertension I10 Hiatal hernia K44.9 Thrush, oral B37.0
[2021-06-25] MEDS: rOPINIRole HCL 1 MG TABLET PO SCH (20:21)
[2021-06-25] MEDS ORDERED: CARBOHYDRATES FOR HYPOGLYCEMIA PO PRN (21:08)
[2021-06-25] MEDS ORDERED: GLUCOSE 40% GEL 15 GM TUBE PO PRN (21:08)
[2021-06-25] MEDS ORDERED: GLUCAGON FOR INJ 1 MG VIAL SQ PRN (21:08)
[2021-06-25] MEDS ORDERED: GLUCOSE 10 TABS/TUBE PO PRN (21:08)
[2021-06-25] MEDS ORDERED: DEXTROSE 50% 50 ML SYRINGE IV PRN (21:08)
[2021-06-25] MEDS: INSULIN ASPART 100 UNITS/ML 3 ML PEN SC SCH (22:20)
[2021-06-26] MEDS: CHECK fentaNYL PATCH PLACEMENT SCH ×3 (00:21→16:10)
[2021-06-26] MEDS: MoRPHine SULFATE 2 MG/ML CARP IV PRN ×6 (00:49→15:09)
[2021-06-26] MEDS: ONDANSETRON INJ 2 MG/ML 2 ML VIAL IV PRN (00:49)
[2021-06-26] MEDS: ALBUT/IPRATROP 3MG/0.5MG NEB 3 ML VIAL NEB SCH ×6 (03:38→22:04)
[2021-06-26 06:39] LABS: Basophils # (auto) 0.01 K/uL (0-0.2); Basophils % (auto) 0.1 %; Hemoglobin 12.1 g/dL (12.0-16.0); Immature Granulocytes # (auto) 0.14 K/uL (0.00-0.02); Immature Granulocytes % (auto) 0.7 %; Lymphocytes # (auto) 0.86 K/uL (1.2-3.4); Lymphocytes % (auto) 4.6 %; Mean Corpuscular Hemoglobin 28.4 pg (25-34); Mean Corpuscular Volume 91.5 fL (80-100); Mean Platelet Volume 9.2 fL (7.4-10.4); Monocytes # (auto) 1.78 K/uL (0.11-0.59); Monocytes % (auto) 9.5 %; Neutrophils # (auto) 15.91 K/uL (1.4-6.5); Neutrophils % (auto) 85.1 %; Platelet Count 433 K/uL (130-400); RDW Coefficient of Variation 14.1 % (11.5-14.5); RDW Standard Deviation 47.2 fL (36.4-46.3); Red Blood Count 4.26 M/uL (4.2-5.4)
[2021-06-26] MEDS: BUDESONIDE 0.5 MG/2 ML VIAL (PULMICORT) NEB SCH ×2 (07:14→19:18)
[2021-06-26] MEDS: FORMOTEROL 20 MCG/2 ML VIAL NEB SCH ×2 (07:14→19:18)
[2021-06-26 07:21] LABS: BUN Creatinine Ratio 13.7 (10-20); Calcium 9.6 mg/dl (8.5-10.1); Est GFR (African American) 93.3 ml/min; Est GFR (Non-African American) 80.5 ml/min; Magnesium 2.4 mg/dl (1.8-2.4); Potassium 3.5 mmol/L (3.5-5.1)
[2021-06-26 07:39] LABS: Estimated Average Glucose 157 mg/dl; Hemoglobin A1C 7.1 % (4.5-5.6)
[2021-06-26] MEDS: methylPREDNISolone 40 MG in SYRINGE 0 ML IV SCH ×3 (08:32→21:20)
[2021-06-26] MEDS: lamoTRIgine 100 MG TAB PO SCH ×2 (08:32→20:36)
[2021-06-26] MEDS: APIXABAN 5 MG TABLET PO SCH ×2 (08:33→20:37)
[2021-06-26] MEDS: guaiFENesin 600 MG TABCR PO SCH ×2 (08:33→18:09)
[2021-06-26] MEDS: AZELASTINE HCL 0.1% NASAL 200 SPRAYS/27,400 MCG BTL NAE SCH ×2 (08:33→20:35)
[2021-06-26] MEDS: DULoxetine HCL 20 MG CAP PO SCH ×2 (08:33→20:36)
[2021-06-26] MEDS: POTASSIUM CHLORIDE PWD 20 MEQ PACK PO SCH (08:34)
[2021-06-26] MEDS: METOPROLOL SUCC 25MG EXT REL TAB PO SCH (08:34)
[2021-06-26] MEDS: SPIRONOLACTONE 25 MG TAB PO SCH (08:34)
[2021-06-26] MEDS: FLUCONAZOLE 100 MG TAB PO SCH (08:34)
[2021-06-26] MEDS: SERTRALINE HCL 100 MG TABLET PO SCH (08:34)
[2021-06-26] MEDS: MONTELUKAST SODIUM 10 MG TABLET PO SCH (08:34)
[2021-06-26] MEDS: PANTOprazole 40 MG TAB PO SCH ×2 (08:34→20:36)
[2021-06-26] MEDS: INSULIN ASPART 100 UNITS/ML 3 ML PEN SC SCH ×4 (08:35→21:20)
[2021-06-26] MEDS: clonazePAM 0.5 MG TAB PO PRN (08:42)
[2021-06-26] MEDS: DOXYCYCLINE HYCLATE 100 MG in DEXTROSE 5% 100 ML IV SCH (08:42)
[2021-06-26] MEDS: POLYETHYLENE (MIRALAX) 17 GM PACK PO PRN (08:51)
[2021-06-26] MEDS: INSULIN GLARGINE SOLOSTAR 100 UNITS/ML 3 ML PEN SC SCH (10:23)
[2021-06-26] MEDS ORDERED: bisacodyL 10 MG SUPP PR STA (13:04)
--- NOTE | 2021-06-26 13:21 | Hospitalist Progress Note ---
Date of Service June 26, 2021 Assessment & Plan (1) COPD exacerbation: Plan: Patient presents with SOB and Wheeze. With end-stage COPD Requested records from outpatient hearing aid fitter, Dr. Khai Munguia-not received yet Improving, still producing large amounts of dark yellow sputum. Afebrile. SPutum cx ordered but not collected yet Still having drops in POx to low 80s with exertion on 3LNC but recovering more quickly now On 3 L nasal cannula continuously at home at baseline and is on that now here at rest -Continue duonebs Q4H -Continue Solu-Medrol 40 mg IV every 8 hours and eventually taper back to home dose of prednisone 20 mg daily-decrease today to 40mg bid -Continue doxycycline 100mg IV BID for 1 more day -Check sputum culture -Continue pain control of chest/rib pain with fentanyl patch, IV morphine 3 mg IV every 2 hours as needed and consult palliative medicine for improved symptom management for her end-stage condition-she would like to follow-up with palliative medicine as an outpatient as well -May need a two-step walk test prior to discharge to identify increasing oxygen needs (2) Acute on chronic respiratory failure with hypoxia: Plan: Still on supplemental oxygen, improving Wean as tolerated as above (3) Chronic chest pain: Plan: As above, secondary to COPD with barrel chest and likely some due to rapid weight gain from being on high-dose steroids for the last 6 months or so Continue fentanyl patch and consider increasing dose-defer to Palliative Med continue morphine to 3 mg IV every 2 hours as needed for severe pain-has required 25mg IV morphine in the last 24 hrs plus her Fentanyl patch She reports oxycodone does not work for her Tramadol only helps her at baseline as an outpatient when not in acute exacerbation Consult palliative medicine for pain management of this end-stage condition as above -bowel regimen for constipation--> continue Miralax, prune juice, and add Bi sacodyl suppos x 1 today (4) Depression with anxiety: Plan: Continue duloxetine and sertraline (taking both as currently in transition to sertraline) Continue Klonipin 0.5mg TID PRN (5) Bipolar 1 disorder: Plan: Continue lamotrigine 200mg PO BID (6) Chronic congestive heart failure: Plan: Appears compensated, unclear if ejection fraction reduced or preserved, but suspect preserved Continue home spironolactone, metoprolol (7) History of pulmonary embolism: Plan: Continue Eliquis (8) Hypertension: Plan: Blood pressures are controlled Continue spironolactone, metoprolol (9) Hiatal hernia: Plan: Continue pantoprazole 40mg PO BID (10) Thrush, oral: Plan: po fluconazole 100mg daily, nystatin S/S Thrush is now completely resolved (11) Diabetes mellitus type 2 in obese: Plan: new diagnosis here, with hyperglycemia secondary to corticosteroids HgbA1C here 76.1% -continue Novolog SSI here and tightened down goal range today and added on carb coverage -add on Lantus 10 units daily -plan to start metformin on discharge and f/u with PCP CDE consult placed Plan: VTE Prophylaxis - Eliquis Disposition -continued stay but downgrade to medical floor, hopeful for discharge to home in the next 1 to 2 days Admission and Anticipated Discharge Date Admission Date: June 21, 2021 Subjective Pt feeling a little better with her SOB, it's not taking as long for her to "recover" after walking back from the bathroom. She is still having pain under the ribs bilaterally and taking IV morphine frequently. Is requesting something more for her bowels as she feels constipated. Also discussed that she does indeed have DM. SHe reports she was briefly on metformin in the past during a stay at a custodial but then was taken off of it and she can't recall why. She definitely did not have an allergic reaction, her kidney function has always been normal, and she does not recall having diarrhea as a side effect. Tele with NSR, PVCs, ST 110s Review of Systems Review of Systems: All systems reviewed & are unremarkable except as noted in HPI & below Physical Exam Constitutional: WD/WN, vitals as above + obese (Cushingoid in appearance) Eyes: + anicteric sclerae ENMT: external ear and nose normal, oropharynx normal Neck: trachea midline, no thyromegaly Respiratory: + tachypneic (With fluent sentences) Auscultation: + diminished lung sounds (Throughout) and + wheezes Cardiovascular: RRR, no murmur, no edema Chest (Breasts): Chest: normal inspection of chest Gastrointestinal (Abdomen): normal bowel sounds, soft, nontender, no hepatosplenomegaly Musculoskeletal: Extremities: extremities normal to inspection; no cyanosis and no clubbing Skin: no rashes, warm and dry Trauma: + evidence of skin trauma (Large old scars on legs bilaterally from previous wounds) Neurologic: moves all extremities and awake; no focal motor deficits Psychiatric: A+Ox3, euthymic affect Lymphatic: no lymphedema Results & Data Results & Data ([facility]) Vital Signs (Past 12 Hours) Vital Signs Temp Pulse Pulse Resp BP Pulse Ox 06/26/21 11:30 37.0 C 76 18 122/62 96 06/26/21 10:53 110 H 06/26/21 10:43 108 H 18 94 06/26/21 08:13 36.9 C 100 H 18 130/63 97 06/26/21 07:15 108 H 20 94 06/26/21 04:41 36.8 C 115 H 18 111/66 92 06/26/21 03:39 110 H 18 94 Laboratory Results 06/26/21 06/26/21 06/26/21 Range/Units 11:16 07:21 05:52 WBC (4.8-10.8) K/uL RBC (4.2-5.4) M/uL Hgb (12.0-16.0) g/dL Hct (37-47) % MCV (80-100) fL MCH (25-34) pg MCHC (32-36) g/dL RDW Std Deviation (36.4-46.3) fL RDW Coeff of Negrito (11.5-14.5) % Plt Count (130-400) K/uL MPV (7.4-10.4) fL Immature Gran % (Auto) % Neut % (Auto) % Lymph % (Auto) % Weston % (Auto) % Eos % (Auto) % Baso % (Auto) % Neut # (Auto) (1.4-6.5) K/uL Lymph # (Auto) (1.2-3.4) K/uL Weston # (Auto) (0.11-0.59) K/uL Eos # (Auto) (0-0.5) K/uL Baso # (Auto) (0-0.2) K/uL Immature Gran # (Auto) (0.00-0.02) K/uL Sodium (136-145) mmol/L Potassium (3.5-5.1) mmol/L Chloride (98-107) mmol/L Carbon Dioxide (21-32) mmol/L Anion Gap (3-11) BUN (7-18) mg/dl Creatinine (0.6-1.2) mg/dl Est Cr Clr Drug Dosing ml/min Est GFR ( Amer) ml/min Est GFR (Non-Af Amer) ml/min BUN/Creatinine Ratio (10-20) Glucose (70-99) mg/dl POC Glucose 196 H 223 H (70-99) mg/dl Estimat Average Glucose 157 mg/dl Hemoglobin A1c 7.1 H (4.5-5.6) % Calcium (8.5-10.1) mg/dl Magnesium (1.8-2.4) mg/dl 06/26/21 06/26/21 06/25/21 Range/Units 05:52 05:52 22:12 WBC 18.70 H (4.8-10.8) K/uL RBC 4.26 (4.2-5.4) M/uL Hgb 12.1 (12.0-16.0) g/dL Hct 39.0 (37-47) % MCV 91.5 (80-100) fL MCH 28.4 (25-34) pg MCHC 31.0 L (32-36) g/dL RDW Std Deviation 47.2 H (36.4-46.3) fL RDW Coeff of Negrito 14.1 (11.5-14.5) % Plt Count 433 H (130-400) K/uL MPV 9.2 (7.4-10.4) fL Immature Gran % (Auto) 0.7 % Neut % (Auto) 85.1 % Lymph % (Auto) 4.6 % Weston % (Auto) 9.5 % Eos % (Auto) 0.0 % Baso % (Auto) 0.1 % Neut # (Auto) 15.91 H (1.4-6.5) K/uL Lymph # (Auto) 0.86 L (1.2-3.4) K/uL Weston # (Auto) 1.78 H (0.11-0.59) K/uL Eos # (Auto) 0.00 (0-0.5) K/uL Baso # (Auto) 0.01 (0-0.2) K/uL Immature Gran # (Auto) 0.14 H (0.00-0.02) K/uL Sodium 136 (136-145) mmol/L Potassium 3.5 (3.5-5.1) mmol/L Chloride 93 L (98-107) mmol/L Carbon Dioxide 36 H (21-32) mmol/L Anion Gap 7.0 (3-11) BUN 12 (7-18) mg/dl Creatinine 0.84 (0.6-1.2) mg/dl Est Cr Clr Drug Dosing 88.0 ml/min Est GFR ( Amer) 93.3 ml/min Est GFR (Non-Af Amer) 80.5 ml/min BUN/Creatinine Ratio 13.7 (10-20) Glucose 208 H (70-99) mg/dl POC Glucose 297 H (70-99) mg/dl Estimat Average Glucose mg/dl Hemoglobin A1c (4.5-5.6) % Calcium 9.6 (8.5-10.1) mg/dl Magnesium 2.4 (1.8-2.4) mg/dl PG Care Time/CCT Total # of Minutes Spent Total Time Spent with Patient: Total time spent is greater than 50% in coordination of care (as documented) at patient's floor/unit and/or counseling patient: Coding Level of Care Code 08485 Subseq Hosp Care Lvl 3 Diagnoses COPD exacerbation J44.1 Acute on chronic respiratory failure with hypoxia J96.21 Chronic chest pain R07.9; G89.29 Depression with anxiety F41.8 Bipolar 1 disorder F31.9 Chronic congestive heart failure I50.9 History of pulmonary embolism Z86.711 Hypertension I10 Hiatal hernia K44.9 Thrush, oral B37.0 Diabetes mellitus type 2 in obese E11.69; E66.9
[2021-06-26] MEDS: MoRPHine SULFATE CR 15 MG TABCR PO SCH (17:46)
[2021-06-26] MEDS: oxyCODONE HCL IR 5 MG TAB (IMMEDIATE RELEASE) PO PRN (20:35)
[2021-06-26] MEDS: rOPINIRole HCL 1 MG TABLET PO SCH (20:36)
--- NOTE | 2021-06-26 21:13 | Palliative Care Consultation ---
Date of Consultation June 26, 2021 Assessment & Plan (1) Palliative care encounter: This patient is a 50 year old female who presented to the [facility] with increased SOB that has worsened over the past few weeks. She has a PMH that includes severe COPD (O2 dependent 3-4 liters at baseline) She has received multiple different antibiotics over the past few weeks by her It Quality Analyst, but continued to experience symptoms. She states that she has been on steroids since her mid 20's and has been a smoker since she is 6 years old. Her main complaint today is pain in her chest, rib area, and back from her excessive coughing. Palliative medicine was consulted to assist with pain management. I met with Krys in her room as she was sitting upright in her bedside chair in no apparent distress. She indicated that she has been on steroids for the last 30 years and has very fragile bones. She has had a spontaneous tibia fracture. She states that she lives at home and takes care of her grandkids often. After discussing Palliative Care, she was receptive to outpatient follow up for her pain management. See below for pain management details. (2) Costochondritis: She describes her pain as a dull pain that is in between her ribs, radiates to her sternum, and around to her back. Cardiac has been ruled out. She does cough frequently at baseline and is clearly a contributing factor. She does take Tramadol 50 mg Q8, but is not taking it here. She states that it does not help much. She was ordered Fentanyl patch 12 mcg with Morphine 3 mg IV Q 2 PRN. She has utilized NINE doses over the past 24 hours for a total of 27 mg. We discussed long acting and short acting medciations. She is receptive to taking MS Contin 15 mg PO BID and Oxycodone 5 mg PO Q4 PRN. We will re-evaluate her pain control based on usage. She had concerns about her grandchildren picking her Fentanyl patch off of her body and them getting harmed by that. The above was discussed with Dr. Hernandez. (3) Back pain: (4) Acute on chronic respiratory failure with hypoxia: History of Present Illness Reason for Consultation: Pain Management Requesting Physician: Dr. Hernandez Attending Physician: Gail Hernandez MD History of Present Illness This patient is a 50 year old female who presented to the [facility] with increased SOB that has worsened over the past few weeks. She has a PMH that includes severe COPD (O2 dependent 3-4 liters at baseline) She has received multiple different antibiotics over the past few weeks by her It Quality Analyst, but continued to experience symptoms. She states that she has been on steroids since her mid 20's and has been a smoker since she is 6 years old. Her main complaint today is pain in her chest, rib area, and back from her excessive coughing. Palliative medicine was consulted to assist with pain management. Please see A/P for further details. Thanks for involving palliative medicine with this individual. Allergies Allergy/AdvReac Type Severity Reaction Status Date / Time ketorolac [From Toradol] Allergy Rash Verified 06/26/21 09:19 sumatriptan Allergy Rash Verified 06/26/21 09:19 zolmitriptan Allergy Unknown Verified 06/26/21 09:19 Home Medications Medication Instructions Recorded Confirmed Type albuterol sulfate 90 mcg/actuation 1 inh INHALATION Q4H 06/21/21 06/21/21 History aerosol inhaler apixaban 5 mg tablet (Eliquis) 5 mg PO BID 06/21/21 06/21/21 History azelastine 137 mcg (0.1 %) nasal 137 mcg INTRANASAL BID 06/21/21 06/21/21 History spray aerosol budesonide 160 mcg-glycopyr 9 2 inh INHALATION BID 06/21/21 06/21/21 History mcg-formot 4.8 mcg/actuation HFA inhaler (Breztri Aerosphere) clonazepam 0.5 mg tablet (Klonopin) 0.5 mg PO TID 06/21/21 06/21/21 History duloxetine 20 mg capsule,delayed 40 mg PO BID 06/21/21 06/21/21 History release (Cymbalta) fentanyl 12 mcg/hr transdermal 1 patch TOPICAL DAILY 06/21/21 06/21/21 History patch furosemide 20 mg tablet (Lasix) 20 mg PO QPM PRN 06/21/21 06/21/21 History guaifenesin 600 mg tablet, 600 mg PO Q12H 06/21/21 06/21/21 History extended release 12 hr ipratropium 0.5 mg-albuterol 3 mg 3 ml INHALATION QID 06/21/21 06/21/21 History (2.5 mg base)/3 mL nebulization soln lamotrigine 200 mg tablet 200 mg PO BID 06/21/21 06/21/21 History metoprolol succinate 25 mg 25 mg PO DAILY 06/21/21 06/21/21 History tablet,extended release 24 hr montelukast 10 mg tablet 10 mg PO DAILY 06/21/21 06/21/21 History ondansetron HCl 4 mg tablet 4 mg PO Q6H PRN 06/21/21 06/21/21 History (Zofran) pantoprazole 40 mg tablet,delayed 40 mg PO BID 06/21/21 06/21/21 History release potassium chloride 20 mEq oral 20 meq PO DAILY 06/21/21 06/21/21 History packet prednisone 20 mg tablet 20 mg PO DAILY 06/21/21 06/21/21 History ropinirole 1 mg tablet 1 mg PO HS 06/21/21 06/21/21 History sertraline 100 mg tablet 100 mg PO DAILY 06/21/21 06/21/21 History sodium chloride 0.65 % nasal spray 1 spray INTRANASAL DAILY PRN 06/21/21 06/21/21 History aerosol (Saline Nasal) spironolactone 25 mg tablet 25 mg PO DAILY 06/21/21 06/21/21 History tramadol 50 mg tablet 50 mg PO Q8H PRN 06/21/21 06/21/21 History Patient History Medical History (Updated 06/26/21 @ 21:49 by JUAN Reynolds) Back pain Bipolar 1 disorder Chronic chest pain Chronic congestive heart failure Costochondritis Depression with anxiety Diabetes mellitus type 2 in obese Hiatal hernia History of breast cancer History of gastric ulcer History of pulmonary embolism Hypertension Palliative care encounter Severe chronic obstructive pulmonary disease Surgical History History of adenectomy History of cholecystectomy History of hysterectomy with oophorectomy History of left mastectomy History of left shoulder replacement History of tonsillectomy Social History Smoking Status: Former smoker Tobacco Type: Cigarettes Smoking End Date: 2017; Second Hand Exposure: No; Tobacco Cessation Education Requested by Patient: No Hx Alcohol Use: No Hx Substance Use: No Preferred Language: Turkmen Communication Ability: Effective Power Press Tender Required: No Beliefs That Will Affect Care: None Current Living Situation: Family How many Children do You have: 3 Feels Safe at Home: Yes Assistive Devices: None Review of Systems Review of Systems: [place] System Assessment Scale: Pain: 2/3 Nausea: 0/3 SOB: 1/3 Anxiety: 0/3 Palliative Performance Scale: 40% Physical Exam Constitutional: + frail appearing, cooperative and comfortable ENMT: Mouth: + dry oral mucous membranes Respiratory: + uses accessory muscles Auscultation: + diminished lung sounds Cardiovascular: Rate/Rhythm: + tachycardic Extremities: normal capillary refill Gastrointestinal (Abdomen): Inspection/Auscultation: abdomen normal to inspection Percussion/Palpation: abdomen soft Skin: + pallor Psychiatric: Orientation: alert and oriented x 3 Results & Data ([facility]) Vital Signs (Past 12 Hours) Vital Signs Temp Pulse Pulse Resp BP Pulse Ox Pulse Ox 06/26/21 19:19 112 H 20 96 06/26/21 18:23 92 06/26/21 16:04 36.7 C 108 H 16 139/83 91 06/26/21 15:19 92 H 18 90 06/26/21 11:30 37.0 C 76 18 122/62 96 06/26/21 10:53 110 H 06/26/21 10:43 108 H 18 94 PG Care Time/CCT Total # of Minutes Spent Total Time Spent with Patient: Total time spent is greater than 50% in coordination of care (as documented) at patient's floor/unit and/or counseling patient: 70 minutes with > 50% of that time spent assessing the patient, discussing goals of care, addressing symptom m anagement needs and collaborating with IDT. Coding Level of Care Code 47275 Initial Inpt Care Lvl 3 Diagnoses Palliative care encounter Z51.5 Costochondritis M94.0 Back pain M54.9 Acute on chronic respiratory failure with hypoxia J96.21 Time Spent (min) 35
[2021-06-27] MEDS: ALBUT/IPRATROP 3MG/0.5MG NEB 3 ML VIAL NEB SCH ×6 (03:11→23:49)
[2021-06-27] MEDS: oxyCODONE HCL IR 5 MG TAB (IMMEDIATE RELEASE) PO PRN ×5 (03:24→21:46)
[2021-06-27] MEDS: clonazePAM 0.5 MG TAB PO PRN ×2 (03:46→15:52)
[2021-06-27] MEDS: guaiFENesin 600 MG TABCR PO SCH ×2 (06:07→17:46)
[2021-06-27] MEDS: BUDESONIDE 0.5 MG/2 ML VIAL (PULMICORT) NEB SCH ×2 (07:46→19:52)
[2021-06-27] MEDS: FORMOTEROL 20 MCG/2 ML VIAL NEB SCH ×3 (07:49→19:53)
[2021-06-27] MEDS: POTASSIUM CHLORIDE PWD 20 MEQ PACK PO SCH (08:40)
[2021-06-27] MEDS: POLYETHYLENE (MIRALAX) 17 GM PACK PO PRN (08:45)
[2021-06-27] MEDS: INSULIN GLARGINE SOLOSTAR 100 UNITS/ML 3 ML PEN SC SCH (08:45)
[2021-06-27] MEDS: METOPROLOL SUCC 25MG EXT REL TAB PO SCH (08:46)
[2021-06-27] MEDS: MONTELUKAST SODIUM 10 MG TABLET PO SCH (08:46)
[2021-06-27] MEDS: PANTOprazole 40 MG TAB PO SCH ×2 (08:46→21:46)
[2021-06-27] MEDS: SPIRONOLACTONE 25 MG TAB PO SCH (08:46)
[2021-06-27] MEDS: INSULIN ASPART 100 UNITS/ML 3 ML PEN SC SCH ×4 (08:46→21:45)
[2021-06-27] MEDS: SERTRALINE HCL 100 MG TABLET PO SCH (08:46)
[2021-06-27] MEDS: MoRPHine SULFATE CR 15 MG TABCR PO SCH ×2 (08:46→20:25)
[2021-06-27] MEDS: DULoxetine HCL 20 MG CAP PO SCH ×2 (08:47→21:47)
[2021-06-27] MEDS: AZELASTINE HCL 0.1% NASAL 200 SPRAYS/27,400 MCG BTL NAE SCH ×2 (08:47→21:47)
[2021-06-27] MEDS: FLUCONAZOLE 100 MG TAB PO SCH (08:47)
[2021-06-27] MEDS: APIXABAN 5 MG TABLET PO SCH ×2 (08:47→21:47)
[2021-06-27] MEDS: methylPREDNISolone 40 MG in SYRINGE 0 ML IV SCH (08:47)
[2021-06-27] MEDS: lamoTRIgine 100 MG TAB PO SCH ×2 (08:47→21:46)
[2021-06-27] MEDS: ONDANSETRON INJ 2 MG/ML 2 ML VIAL IV PRN ×2 (11:02→21:49)
[2021-06-27] MEDS: predniSONE 50 MG TAB PO SCH (11:56)
[2021-06-27] MEDS: INSULIN HUMAN NPH SC SCH (12:26)
[2021-06-27] MEDS ORDERED: MAGNESIUM CITRATE 296 ML/BTL PO STA (13:26)
--- NOTE | 2021-06-27 13:31 | Hospitalist Progress Note ---
Date of Service June 27, 2021 Assessment & Plan (1) COPD exacerbation: Plan: Patient presents with SOB and Wheeze. With end-stage COPD Requested records from outpatient adzing and boring machine operator, Dr. Khai Munguia-not received yet Improving, still producing large amounts of dark yellow sputum. Afebrile. SPutum cx ordered but not collected yet Was having drops in POx to low 80s with exertion on 3LNC but recovering more quickly now and only having drops to 88% Still coughing up large amounts of sputum, SPutum cx pending On 3 L nasal cannula continuously at home at baseline and is on that now here at rest, may need to reassess needs prior to discharge -Continue duonebs Q4H -dc Solu-Medrol 40 mg IV every 8 hours and convert to prednisone 50mg daily and taper back to home dose of prednisone 20 mg daily -Continue doxycycline 100mg IV BID until sputum culture back -follow sputum culture -Continue pain control of chest/rib pain as below -May need a two-step walk test prior to discharge to identify increasing oxygen needs (2) Acute on chronic respiratory failure with hypoxia: Plan: Still on supplemental oxygen, improving Wean as tolerated as above (3) Chronic chest pain: Plan: As above, secondary to COPD with barrel chest and likely some due to rapid weight gain from being on high-dose steroids for the last 6 months or so Seen by Palliative Med for symptom management--> dc fentanyl patch and Started MS Contin 15mg po bid with oxycodone 5mg po q4h for breakthrough--> doing well with this -dc home tramadol on discharge f/u as outpt with Palliative Medicine, Dr. Boyce Opioid-induced constipation--> ongoing ---> continue Miralax, prune juice, and Bisacodyl suppos x 1 given 06/26 add Mag citrate today (4) Depression with anxiety: Plan: Continue duloxetine and sertraline (taking both as currently in transition to sertraline) Continue Klonipin 0.5mg TID PRN (5) Bipolar 1 disorder: Plan: Continue lamotrigine 200mg PO BID (6) Chronic congestive heart failure: Plan: Appears compensated, unclear if ejection fraction reduced or preserved, but suspect preserved Continue home spironolactone, metoprolol (7) History of pulmonary embolism: Plan: Continue Eliquis (8) Hypertension: Plan: Blood pressures are controlled Continue spironolactone, metoprolol (9) Hiatal hernia: Plan: Continue pantoprazole 40mg PO BID (10) Thrush, oral: Plan: po fluconazole 100mg daily, nystatin S/S Thrush is now completely resolved (11) Diabetes mellitus type 2 in obese: Plan: new diagnosis here, with hyperglycemia secondary to corticosteroids--ongoing HgbA1C here 7.1% -continue Novolog SSI here -continue on Lantus 10 units daily -add NPH 5units qAM for now and titrate up as needed -dc IV steroids and revert to prednisone 50mg daily -plan to start metformin 1000mg po bid on discharge and f/u with PCP CDE consult [id number] supplies for testing upon discharge: OneTouch Verio test strips 1x/day, #100/90 days; OneTouch Delica lancets 33 ga 1x/day #100/90 days Plan: VTE Prophylaxis - Eliquis Disposition -continued stay,hopeful for discharge to home in the next 1 to 2 days Admission and Anticipated Discharge Date Admission Date: June 21, 2021 Subjective Pt still feels really congested in her chest and POx drops to 88% with exertion but this is an improvement. Was found to be off her O2 while sleeping last night and had a POx of 52%. She states she cannot tolerate BiPAP or CPAP masks. Producing large amounts of gross sputum she says that still "taste like infection." Feels the MS Contin and oxycodone are doing a great job at controlling her pain. Does still have bad constipation and also having a lot of dry mouth and throat. Does not quite feel ready for discharge yet. Review of Systems Review of Systems: All systems reviewed & are unremarkable except as noted in HPI & below Physical Exam Constitutional: WD/WN, vitals as above + obese (Cushingoid in appearance) Eyes: + anicteric sclerae Neck: trachea midline, no thyromegaly Respiratory: Auscultation: + diminished lung sounds (Throughout) and + wheezes Cardiovascular: RRR, no murmur, no edema Chest (Breasts): Chest: normal inspection of chest Gastrointestinal (Abdomen): normal bowel sounds, soft, nontender, no hepatosplenomegaly Musculoskeletal: Extremities: extremities normal to inspection; no cyanosis and no clubbing Skin: no rashes, warm and dry Trauma: + evidence of skin trauma (Large old scars on legs bilaterally from previous wounds) Neurologic: moves all extremities and awake; no focal motor deficits Psychiatric: A+Ox3, euthymic affect Lymphatic: no lymphedema Results & Data Results & Data ([facility]) Vital Signs (Past 12 Hours) Vital Signs Temp Pulse Resp BP Pulse Ox 06/27/21 11:38 103 H 18 98 06/27/21 07:46 111 H 18 93 06/27/21 07:17 36.9 C 110 H 18 149/93 H 93 06/27/21 03:11 125 H 20 58 L Laboratory Results 06/27/21 06/27/21 06/26/21 Range/Units 12:25 08:24 20:41 POC Glucose 133 H 232 H 261 H (70-99) mg/dl 06/26/21 Range/Units 17:04 POC Glucose 260 H (70-99) mg/dl PG Care Time/CCT Total # of Minutes Spent Total Time Spent with Patient: Total time spent is greater than 50% in coordination of care (as documented) at patient's floor/unit and/or counseling patient: Coding Level of Care Code 60579 Subseq Hosp Care Lvl 2 Diagnoses COPD exacerbation J44.1 Acute on chronic respiratory failure with hypoxia J96.21 Chronic chest pain R07.9; G89.29 Depression with anxiety F41.8 Bipolar 1 disorder F31.9 Chronic congestive heart failure I50.9 History of pulmonary embolism Z86.711 Hypertension I10 Hiatal hernia K44.9 Thrush, oral B37.0 Diabetes mellitus type 2 in obese E11.69; E66.9
[2021-06-27] MEDS: PNEUMOCOCCAL POLYSACCHARIDES 25 MCG/0.5 ML VIAL/SYR IM ONE ×2 (14:46→17:47)
[2021-06-27] MEDS ORDERED: SENNOSIDES 8.8 MG/5 ML UDC PO PRN (21:08)
[2021-06-27] MEDS: rOPINIRole HCL 1 MG TABLET PO SCH (21:47)
[2021-06-27] MEDS: MAGNESIUM CITRATE 296 ML/BTL PO PRN (21:49)
[2021-06-28] MEDS: ALBUT/IPRATROP 3MG/0.5MG NEB 3 ML VIAL NEB SCH ×4 (03:32→15:32)
[2021-06-28] MEDS: oxyCODONE HCL IR 5 MG TAB (IMMEDIATE RELEASE) PO PRN ×3 (03:45→15:59)
[2021-06-28] MEDS: guaiFENesin 600 MG TABCR PO SCH (05:56)
[2021-06-28] MEDS: clonazePAM 0.5 MG TAB PO PRN (05:58)
[2021-06-28] MEDS: BUDESONIDE 0.5 MG/2 ML VIAL (PULMICORT) NEB SCH (06:36)
[2021-06-28] MEDS: FORMOTEROL 20 MCG/2 ML VIAL NEB SCH (06:37)
[2021-06-28 07:21] VITALS: TEMP 97.9
[2021-06-28] MEDS: MoRPHine SULFATE CR 15 MG TABCR PO SCH (08:15)
[2021-06-28] MEDS: INSULIN HUMAN NPH SC SCH (09:11)
[2021-06-28] MEDS: AZELASTINE HCL 0.1% NASAL 200 SPRAYS/27,400 MCG BTL NAE SCH (09:13)
[2021-06-28] MEDS: APIXABAN 5 MG TABLET PO SCH (09:14)
[2021-06-28] MEDS: lamoTRIgine 100 MG TAB PO SCH (09:14)
[2021-06-28] MEDS: FLUCONAZOLE 100 MG TAB PO SCH (09:14)
[2021-06-28] MEDS: DULoxetine HCL 20 MG CAP PO SCH (09:14)
[2021-06-28] MEDS: predniSONE 50 MG TAB PO SCH (09:15)
[2021-06-28] MEDS: MONTELUKAST SODIUM 10 MG TABLET PO SCH (09:15)
[2021-06-28] MEDS: PANTOprazole 40 MG TAB PO SCH (09:15)
[2021-06-28 09:16] LABS: Albumin Level 3.3 gm/dl (3.4-5.0); BUN Creatinine Ratio 12.3 (10-20); Bilirubin Direct 0.4 mg/dl (0-0.2); Calcium 8.8 mg/dl (8.5-10.1); Potassium 3.9 mmol/L (3.5-5.1)
[2021-06-28] MEDS: INSULIN GLARGINE SOLOSTAR 100 UNITS/ML 3 ML PEN SC SCH (09:16)
[2021-06-28] MEDS: POTASSIUM CHLORIDE PWD 20 MEQ PACK PO SCH (09:16)
[2021-06-28] MEDS: SERTRALINE HCL 100 MG TABLET PO SCH (09:16)
[2021-06-28] MEDS: SPIRONOLACTONE 25 MG TAB PO SCH (09:16)
[2021-06-28] MEDS: INSULIN ASPART 100 UNITS/ML 3 ML PEN SC SCH ×2 (09:17→13:07)
[2021-06-28 09:18] LABS: Bilirubin,Total 0.7 mg/dl (0.2-1); Total Protein 6.8 gm/dl (6.4-8.2)
[2021-06-28] MEDS: METOPROLOL SUCC 25MG EXT REL TAB PO SCH (10:10)
[2021-06-28] MEDS ORDERED: levoFLOXacin 750 MG TAB PO SCH (11:00)
[2021-06-28] MEDS: MAGNESIUM CITRATE 296 ML/BTL PO PRN (11:49)
[2021-06-28] MEDS: SIMETHICONE 80 MG CHEW PO PRN (14:17)
[2021-06-28 14:50] VITALS: BP 109/75; O2SAT 97
--- NOTE | 2021-06-28 15:29 | Discharge Summary ---
Date of Service June 28, 2021 Admission HPI Per Admitting Provider Krys Capellan is a 50 year old female with severe COPD and chronic hypoxic respiratory failure who presents to the ER with shortness of breath progressively getting worse over the last three weeks. She is chronically on 3- 4LPM O2 at baseline. Her pulmonary care is usually managed by [facility]. Over the last three weeks she has been getting progressively more short of breath with increasing cough despite outpatient management initially consisting of azithromycin, switched to Levaquin (finished last week /Friday) and currently on doxycycline. She also reports her chronic 20mg PO prednisone was increased to 40mg. Given worsening symptoms she was advised to go to the hospital by her mix technician. In the ER O2 sats 86% on her usual 4LPM O2, she was diffusely wheezing using all accessory muscles. Unable to tolerate BIPAP therefore high flow O2 was started for some positive pressure. She feels mildly improved after steroids and duoneb 12ml given in the ER. She was referred to medicine for admission and ongoing management of COPD exacerbation. She reports previosly being on hospice to help manage her chronic chest pain but this was since revoked and she wants full level of care including CPR at this time. She has previously been on a ventilator for her COPD. Principal Diagnosis COPD Exacerbation, Acute on chronic respiratory failure with hypoxia Discharge Exam Constitutional WD/WN, vitals as above + obese (Cushingoid in appearance) Eyes + anicteric sclerae ENMT external ear and nose normal, oropharynx normal Neck trachea midline, no thyromegaly Respiratory Auscultation: + diminished lung sounds (Throughout) and + wheezes Cardiovascular RRR, no murmur, no edema Chest (Breasts) Chest: normal inspection of chest Gastrointestinal (Abdomen) normal bowel sounds, soft, nontender, no hepatosplenomegaly Musculoskeletal Extremities: extremities normal to inspection; no cyanosis and no clubbing Skin no rashes, warm and dry Trauma: + evidence of skin trauma (Large old scars on legs bilaterally from previous wounds) Neurologic moves all extremities and awake; no focal motor deficits Psychiatric A+Ox3, euthymic affect Lymphatic no lymphedema Discharge Data Allergies Allergy/AdvReac Type Severity Reaction Status Date / Time ketorolac [From Toradol] Allergy Rash Verified 06/26/21 09:19 sumatriptan Allergy Rash Verified 06/26/21 09:19 zolmitriptan Allergy Unknown Verified 06/26/21 09:19 Consultations 06/21/21 15:02 ED Decision to Admit Stat 06/25/21 14:51 Consult Palliative Care Routine 06/25/21 20:56 Consult Health Information Management Routine Ordered Studies Chest X-Ray 06/21/21 12:51 XR chest 1V portable CLINICAL HISTORY: Resiratory Distress. COMPARISON STUDY: No previous studies for comparison. TECHNIQUE: 1 view of the chest FINDINGS: Single frontal view of the chest demonstrates the cardiomediastinal silhouette to be within normal limits. The lungs are clear of alveolar opacities. There is no evidence for pleural effusion. There is no evidence for vascular congestion. There is no acute osseous pathology. IMPRESSION: No acute cardiopulmonary disease. ACT 112: Negative or not required by law. Electronically signed by: Marcel Sanchez M.D. 06/21/2021 2:40 PM Diabetes Follow up Diabetes Follow-up Needed for Newly Diagnosed Diabetes Hospital Course (1) COPD exacerbation: Patient presents with SOB and Wheeze. With end-stage COPD Requested records from outpatient mix technician, Dr. Khai Munguia-not received prior to discharge Improving, was producing large amounts of dark yellow sputum and is improving. Afebrile. SPutum cx growing GNR but not finalized at time of discharge--> Microbiology says it is definitely not Pseudomonas Was having drops in POx to low 80s with exertion on 3LNC but recovering more quickly now and needing 5L with exertion Feels less SOB and ready to go home On 3 L nasal cannula continuously at home -received IV Solu-Medrol 40 mg IV every 8 hours and converted to prednisone 50mg daily and taper back to home dose of prednisone 20 mg daily after discharge -received IV doxy with no improvement--> changed to Levaquin and complete 7 day course after discharge -follow sputum culture after discharge and call with results -Continue pain control of chest/rib pain as below f/u with outpt PULM (2) Acute on chronic respiratory failure with hypoxia: Still on supplemental oxygen, improving (3) Chronic chest pain: As above, secondary to COPD with barrel chest and likely some due to rapid weight gain from being on high-dose steroids for the last 6 months or so Seen by Palliative Med for symptom management--> dc fentanyl patch and Started MS Contin 15mg po bid with oxycodone 5mg po q4h for breakthrough--> doing well with this -dc home tramadol on discharge f/u as outpt with Palliative Medicine, Dr. Boyce Opioid-induced constipation--> ongoing ---> continue Miralax, prune juice, and Bisacodyl suppos x 1 given 06/26, Mag citrate on 06/27 -dc to home on daily Miralax and she has MOM at home to try (4) Depression with anxiety: Continue duloxetine and sertraline (taking both as currently in transition to sertraline) Continue Klonipin 0.5mg TID PRN (5) Bipolar 1 disorder: Continue lamotrigine 200mg PO BID (6) Chronic congestive heart failure: Appears compensated, unclear if ejection fraction reduced or preserved, but suspect preserved Continue home spironolactone, metoprolol (7) History of pulmonary embolism: Continue Eliquis (8) Hypertension: Blood pressures are controlled Continue spironolactone, metoprolol (9) Hiatal hernia: Continue pantoprazole 40mg PO BID (10) Thrush, oral: po fluconazole 100mg daily was given x 1 week Thrush is now completely resolved (11) Diabetes mellitus type 2 in obese: new diagnosis here, with hyperglycemia secondary to corticosteroids--o ngoing HgbA1C here 7.1% managed with insulin here but improving once IV steroids stopped -plan to start metformin 1000mg XR po bid on discharge and f/u with PCP CDE consult [id number] supplies for testing upon discharge: OneTouch Verio test strips 1x/day, #100/90 days; OneTouch Delica lancets 33 ga 1x/day #100/90 days VTE Prophylaxis - Eliquis Disposition -dc to home Total Time Total Time Spent Total Time Spent (In Minutes): 35 min Discharge Plan Discharge Items Patient Disposition: Home - Home Health Services Reason For Visit: COPD EXACERBATION Discharge Diagnosis: COPD Exacerbation, acute on chronic respiratory failure with hypoxia, new onset diabetes mellitus Condition on Discharge: Fair Activity: Resume your previous activity Non-emergency contact: Primary Care Provider and Customer Assistant Call non-emergency contact if: you have any medication questions and your symptoms worsen Follow-up/Referrals: Jazmine Boyce MD [Physician] - (Follow up within 2 weeks for pain management.) Cesar Rivera MD [Primary Care Provider] - 07/09/21 2:00 pm (Follow up within 1-2 weeks.) Diet: Carb Consistent or DM2 Addtl Attending Provider Instructions: Please continue the prednisone taper by taking 50mg daily and decreasing by 10mg every 2 days until back to 20mg. You should wear 3L at rest and go up to 5L with any exertion on your oxygen. For your pain management, you were seen by Palliative Care and had your Fentanyl patch discontinued. You were instead started on MS Contin (long acting morphine) twice a day, and can take oxycodone as needed for breakthrough pain. You should NOT take the tramadol or Fentanyl patch. These pain medications can make you constipated. Please continue to take Miralax or milk of magnesia, along with prune juice to get your bowels moving regularly. You were found to have diabetes while you were here. You were started on metformin on discharge and will need to follow up with your PCP for further treatment. Please check your blood glucose once a day in the mornings. Pending Studies at Discharge: Yes (Final sputum culture) Stand-Alone Forms: [facility], Opioid Pain Management, Smoking Cessation Medications and DC Order Prescriptions: New morphine 15 mg Tablet Extended Release 15 mg PO Q12 Qty: 28 RF: 0 levofloxacin 750 mg Tablet 750 mg PO DAILY@1100 Qty: 6 RF: 0 oxycodone 5 mg Tablet 5 mg PO Q4 PRN (Reason: breakthrough pain) Qty: 30 RF: 0 polyethylene glycol 3350 [Miralax] 17 gram Powder In Packet 17 g PO DAILY Qty: 30 RF: 0 prednisone 10 mg tablet 50 mg PO DAILY Qty: 19 RF: 0 metformin 1,000 mg tablet extended release 24hr 1,000 mg PO BID Qty: 60 RF: 0 (DME) lancets [OneTouch Delica Lancets] 33 gauge misc See Rx Instructions .Route Qty: 100 RF: 0 (DME) OneTouch Verio test strips Strip See Rx Instructions .Route Qty: 100 RF: 0 Continued lamotrigine 200 mg tablet 200 mg PO BID RF: 0 ropinirole 1 mg tablet 1 mg PO HS RF: 0 ipratropium-albuterol 0.5 mg-3 mg(2.5 mg base)/3 mL Solution For Nebulization 3 ml INHALATION QID RF: 0 ondansetron HCl [Zofran] 4 mg Tablet 4 mg PO Q6H PRN (Reason: Nausea) RF: 0 clonazepam [Klonopin] 0.5 mg Tablet 0.5 mg PO TID RF: 0 sertraline 100 mg tablet 100 mg PO DAILY RF: 0 spironolactone 25 mg tablet 25 mg PO DAILY RF: 0 potassium chloride 20 mEq packet 20 meq PO DAILY RF: 0 pantoprazole 40 mg tablet,delayed release (DR/EC) 40 mg PO BID RF: 0 montelukast 10 mg tablet 10 mg PO DAILY RF: 0 furosemide [Lasix] 20 mg Tablet 20 mg PO QPM PRN (Reason: Weight Gain) RF: 0 metoprolol succinate 25 mg tablet extended release 24 hr 25 mg PO DAILY RF: 0 azelastine 137 mcg (0.1 %) aerosol,spray 137 mcg INTRANASAL BID RF: 0 albuterol sulfate 90 mcg/actuation HFA aerosol inhaler 1 inh INHALATION Q4H RF: 0 sodium chloride [Saline Nasal] 0.65 % Aerosol,[place] 1 spray INTRANASAL DAILY PRN (Reason: Dry Nasal Passages) RF: 0 duloxetine [Cymbalta] 20 mg Capsule,Delayed Release(Dr/Ec) 40 mg PO BID RF: 0 Eliquis 5 mg Tablet 5 mg PO BID RF: 0 guaifenesin 600 mg Tablet Extended Release 12hr 600 mg PO Q12H RF: 0 Breztri Aerosphere 160-9-4.8 mcg/actuation HFA aerosol inhaler 2 inh INHALATION BID RF: 0 prednisone 20 mg tablet 20 mg PO DAILY Qty: 30 RF: 0 Discontinued tramadol 50 mg tablet 50 mg PO Q8H PRN (Reason: Pain) RF: 0 fentanyl 12 mcg/hr patch 72 hour 1 patch topical DAILY RF: 0 Discharge Orders: Discharge Order (Routine); Ordered 06/28/21 Ordered By: Gail Hooks/Other Patient Handouts: A1C, High Blood Sugar (Hyperglycemia), Exercise: Why Fitness Matters, Diabetes: Meal Planning, Type 2 Diabetes Admission Data Admit Date/Time: 06/21/21 16:22 Attending Provider: Gail Hernandez Admit Provider: Zi Marks Primary Care Provider: Cesar Rivera Providers: Zi Marks ; Jazmine Boyce Coding Level of Care Code D/C DAY MANAGEMENT >30 MINS Diagnoses COPD exacerbation J44.1 Acute on chronic respiratory failure with hypoxia J96.21 Chronic chest pain R07.9; G89.29 Depression with anxiety F41.8 Bipolar 1 disorder F31.9 Chronic congestive heart failure I50.9 History of pulmonary embolism Z86.711 Hypertension I10 Hiatal hernia K44.9 Thrush, oral B37.0 Diabetes mellitus type 2 in obese E11.69; E66.9
[2021-06-28 15:34] VITALS: PULSE 117
== END 2021-06-28 16:50 | disposition home health service (06) | DRG 190 ==
LOC: ED 12:21 → 2S 16:22 → SUATTDRO 16:22 → 2S 17:28 → 3W 06-26 13:06
DX: J96.21 Acute and chronic respiratory failure with hypoxia; Z79.01 Long term (current) use of anticoagulants; F31.9 Bipolar disorder, unspecified; T40.2X5A Adverse effect of other opioids, initial encounter; Z99.81 Dependence on supplemental oxygen; Z86.711 Personal history of pulmonary embolism; E66.9 Obesity, unspecified; K59.03 Drug induced constipation; B37.0 Candidal stomatitis; F41.8 Other specified anxiety disorders; R73.9 Hyperglycemia, unspecified; E11.9 Type 2 diabetes mellitus without complications; I50.9 Heart failure, unspecified; M94.0 Chondrocostal junction syndrome [Tietze]; Y92.009 Unspecified place in unspecified non-institutional (private) residence as the place of occurrence of the external cause; Z68.41 Body mass index [BMI] 40.0-44.9, adult; T38.0X5A Adverse effect of glucocorticoids and synthetic analogues, initial encounter; I11.0 Hypertensive heart disease with heart failure; Z87.891 Personal history of nicotine dependence; K44.9 Diaphragmatic hernia without obstruction or gangrene; J44.1 Chronic obstructive pulmonary disease with (acute) exacerbation